=== PATIENT | male | born 1945 | race Caucasian/White ===

== ENCOUNTER 2017-04-08 13:24 | Outpatient (CLI) | payer MEDICARE, BC ==
[2017-04-08] MEDS ORDERED: Gadobenate Dimeglumine 529 MG/1 ML (20ML VIAL) ONE (13:30)
== END 2017-04-08 13:25 | disposition home or self-care (01) ==
LOC: BICMRI 13:24
PROVIDERS: ATTEND Nurse Practitioner Family
DX: M96.1 Postlaminectomy syndrome, not elsewhere classified (principal); M47.896 Other spondylosis, lumbar region; Z98.890 Other specified postprocedural states
CPT/HCPCS: 72158; A9579

== ENCOUNTER 2017-04-08 15:16 | Outpatient (CLI) | payer MEDICARE, BC | END 2017-04-08 15:17 | disposition home or self-care (01) | LOC: BICRAD 15:16 | PROVIDERS: ATTEND Nurse Practitioner Family | DX: M96.1 Postlaminectomy syndrome, not elsewhere classified (principal); M46.94 Unspecified inflammatory spondylopathy, thoracic region; M46.96 Unspecified inflammatory spondylopathy, lumbar region; Z98.890 Other specified postprocedural states | CPT/HCPCS: 72070; 72100; 72158; A9579 ==

== ENCOUNTER 2017-05-22 10:56 | Outpatient (CLI) | payer MEDICARE, BC ==
--- NOTE | 2017-05-22 13:44 | CT ---
CT LUMBAR SPINE WITHOUT CONTRAST: 05/22/2017 HISTORY: Lumbar radiculopathy. Back pain. Pain radiating into bilateral hips. COMPARISON: 01/02/2016 TECHNIQUE: Serial axial CT imaging at 3 mm intervals, from the lower thoracic spine through the lower sacrum, wi thout contrast. Coronal and sagittal reformatted imaging obtained. FINDINGS: Extensive atherosclerotic calcification of the abdominal aorta and its branches noted. Bilateral pedicle screws are present at L2, L3, and L4, with vertically oriented interlocking rods. There is minimal retrolisthesis at L1-L2 and at L2-L3, stable. T12-L1: There is disk space narrowing, mild disk bulge, and vacuum disk formation. There is mild bi lateral facet hypertrophy. There is probable mild central canal stenosis. No osseous cause of signi ficant neural foraminal stenosis. L1-L2: There is disk space narrowing, vacuum disk formation, mild disk bulge, and anterior osteophyt e formation. There is mild bilateral facet hypertrophy. There is mild bilateral neural foraminal st enosis. No osseous cause of significant central canal stenosis. L2-L3: There is disk space narrowing with vacuum disk formation and anterior osteophyte formation, a s well as mild disk bulge. There is moderate bilateral facet hypertrophy with associated moderate ne ural foraminal stenosis, left greater than right, and probable mil central canal stenosis. L3-L4: Moderate bilateral facet hypertrophy. Mild bilateral neural foraminal stenosis, right greate r than left. There is disk space narrowing with no obvious central canal stenosis. L4-L5: Mild bilateral facet hypertrophy with no significant central canal or neural foraminal stenos is, on the basis of an osseous abnormality. L5-S1: No osseous cause of significant central canal or neural foraminal stenosis. There is no worrisome lytic or blastic bone lesion. There is lateral osteophyte formation on the rig ht at L1-L2, L2-L3, and L3-L4 and on the left at L1-L2, L2-L3, and L3-L4. No worrisome lytic or johnna tic bone lesion. IMPRESSION: 1. Extensive multilevel postoperative and degenerative change within the lumbar spine, as detailed a paul. 2. Extensive atherosclerotic calcification of the abdominal aorta and its branches. POS: [facility]
== END 2017-05-22 10:57 | disposition home or self-care (01) ==
LOC: TBSIIMAG 10:56
PROVIDERS: ATTEND Neurological Surgery
DX: M47.26 Other spondylosis with radiculopathy, lumbar region (principal); I70.0 Atherosclerosis of aorta; Z98.890 Other specified postprocedural states
CPT/HCPCS: 72131

== ENCOUNTER 2017-06-11 07:06 | Inpatient (IN) | payer MEDICARE, BC ==
--- NOTE | 2017-06-11 02:24 | HP ---
HISTORY OF PRESENT ILLNESS: Mr. Leal is a 71-year-old man who is known to us from previous evaluatio n of several lumbar back problems as well as multiple lumbar back surgeries. Most recently, he has r eturned to us for evaluation of continued severe lower back pain by referral from Brinda Brown, with our colleagues and [facility] pain management. This is also with imaging at [facility] that reveals po ssible unstable segment at L2-L3 which is the adjacent segment cranially to his previous lumbar fusio n construct. CT scan also confirms bony stenosis at L2-L3. At this time, he has exhausted all of ga s conservative management options and would like to move forward with surgery at this time if possibl e. PAST MEDICAL HISTORY: Significant for hypertension, peripheral vascular disease, gout, sleep apnea, COPD, back problems, gastroesophageal reflux disease, hypercholesterolemia and hypertension. ALLERGIES: BIAXIN. MEDICATIONS: Lotrel, Advil, Protonix, tramadol, albuterol. ASSESSMENT: Lumbar back pain and radiculopathy. PLAN: Dr. Trivedi met with the patient, reviewed extensively his imaging results and options and ultim ately advocated for extension and reoperation of his fusion to include the L2 segment. He explained to the patient the risks, benefits, and alternatives to the procedure. The patient expressed underst anding and would like to move forward with surgery as discussed. I do believe the patient is mentall y competent and capable of making medical decisions for himself and for surgery as planned.
[2017-06-11 08:20] LABS: #Eosinphils 0.1 thou/uL (0.0-0.7); #Lymphocytes 1.8 thou/uL (1.20-3.40); #Monocytes 0.6 thou/uL (0.11-0.59); #Neutrophils 3.8 thou/uL (1.40-6.50); %Basophils 0.1 % (0.0-1.0); %Eosinophils 1.2 % (0.0-10.0); %Lymphocytes 28.5 % (21.0-51.0); %Monocytes 9.8 % (0.0-10.0); %Neutrophils 60.4 % (42.0-75.0); Hemoglobin 13.5 g/dL (14.0-18.0); Mean Corpuscular Hemoglobin 31.8 pg (27.0-31.0); Mean Corpuscular Volume 96.4 fl (80.0-94.0); Mean Platelet Volume 6.8 fL (7.4-10.4); Platelet Count 201 thou/uL (130-400); RBC Distribution Width 12.7 % (11.5-14.5); Red Blood Cell (RBC) Count 4.24 mill/uL (4.70-6.10); White Blood Cell (WBC) Count 6.3 thou/uL (4.8-10.8)
[2017-06-11] MEDS ORDERED: Bupivacaine HCl 0.5%/Epinephrine 1:200,000/PF 30 ml Vial ONE (08:20)
[2017-06-11] MEDS ORDERED: Fentanyl 250 MCG/5 ML VIAL ONE (08:25)
[2017-06-11] MEDS ORDERED: Midazolam HCl 2 mg/2 ml Vial ONE (08:25)
[2017-06-11 08:36] LABS: Anion Gap 10 mmol/L (10-20); BUN (Urea Nitrogen) 32 mg/dL (8.4-25.7); Calc. Creatinine Clearance 66 mL/min (70-130); Calcium 9.2 mg/dL (7.8-10.44); Carbon Dioxide 24 mmol/L (23-31); Chloride 109 mmol/L (98-107); Estimated GFR-MDRD 60; Glucose 108 mg/dL (83-110); Potassium 4.6 mmol/L (3.5-5.1); Sodium 138 mmol/L (136-145)
[2017-06-11] MEDS ORDERED: Fentanyl 100 MCG/2 ML VIAL ONE ×4 (08:37→11:17)
[2017-06-11] MEDS ORDERED: Ondansetron HCl/PF 4 MG/2 ML Vial ONE ×2 (08:43→11:10)
[2017-06-11] MEDS ORDERED: CEFAZOLIN/Water 2 GM/20 ML SYRINGE ONE ×2 (08:49→12:53)
[2017-06-11] MEDS ORDERED: Morphine Sulfate 2 MG/ML SYRINGE SLOW IVP PRN (09:52)
[2017-06-11] MEDS ORDERED: HYDROmorphone 2 MG/ML VIAL SLOW IVP PRN (09:52)
[2017-06-11] MEDS ORDERED: Tamsulosin HCl 0.4 MG CAP ONE (11:02)
[2017-06-11] MEDS ORDERED: PROPOFOL 200 MG/20 ML VIAL ONE (11:10)
[2017-06-11] MEDS ORDERED: Glycopyrrolate 0.2 MG/ML 5 ML SYRINGE ONE (11:10)
[2017-06-11] MEDS ORDERED: Dexamethasone 20 MG/5 ML VIAL ONE (11:10)
[2017-06-11] MEDS ORDERED: ePHEDrine/0.9% NaCl/PF SYRINGE 50 mg/10 ml ONE (11:10)
[2017-06-11] MEDS ORDERED: Lidocaine 1% PF 5 ML VIAL ONE (11:10)
[2017-06-11] MEDS ORDERED: HYDROmorphone 0.5 MG/0.5 ML SYRINGE ONE ×2 (11:30→11:54)
[2017-06-11] MEDS ORDERED: HYDROcodone/Acetaminophen 7.5/325 mg Tablet ONE (12:44)
--- NOTE | 2017-06-12 15:10 | OP ---
DATE OF OPERATION: 06/11/2017 SURGEON: Abel Trivedi M.D. SUPERVISOR EDGING: Haim Vee PA-C. INDICATION: Pain. DIAGNOSIS: Low back pain. PROCEDURE: Exploration of fusion, decompression, and onlay fusion with placement of allograft and au tograft. ANESTHESIA: General. TECHNIQUE: The patient was brought into the operating room and placed under general anesthesia. He was flipped from a supine or prone position on the operating room table. A linear incision was plann ed spanning location of his old surgical site. This area was prepped and draped. After an appropria te operative pause, the incision was created. Soft tissues were swept away from midline. Self-retai andre retractors were placed in the wound for optimal exposure. After identifying location, the patie nt's prior fusion, as well as instrumentation construct, bone was carefully removed around the screw sites. The segment of L2-3 was decompressed to further decompress the recess at L2-3. The bone was decorticated along the lateral confines of L2-3 where allograft and autograft were placed extending i nferiorly into L3. The wound was irrigated. Hemostasis was maintained throughout. The wound was th en closed in anatomic layers and a pressure dressing was applied. There were no known procedural com plications.
--- NOTE | 2017-06-15 08:46 | EKG ---
Test Reason : PROEP Blood Pressure : / mmHG Vent. Rate : 059 BPM Atrial Rate : 059 BPM P-R Int : 158 ms QRS Dur : 088 ms QT Int : 434 ms P-R-T Axes : 064 011 -03 degrees QTc Int : 429 ms Sinus bradycardia Inferior infarct (cited on or before 28-NOV-2014) Abnormal ECG When compared with ECG of 02-DEC-2014 14:39, No significant change was found Confirmed by KACI PICKENS MD ([id number]) on 06/15/2017 8:45:45 AM Referred By: DIEGO Confirmed By:KACI PICKENS MD
== END 2017-06-11 13:20 | disposition home or self-care (01) | DRG 460 ==
LOC: SURG A 07:06
PROVIDERS: ADMIT Neurological Surgery; ATTEND Neurological Surgery
PROC: 0SG0071 Fusion of Lumbar Vertebral Joint with Autologous Tissue Substitute, Posterior Approach, Posterior Column, Open Approach (ICD-10-PCS; principal; 2017-06-11)
DX: M51.36 Other intervertebral disc degeneration, lumbar region (principal); J44.9 Chronic obstructive pulmonary disease, unspecified; M47.896 Other spondylosis, lumbar region; I10 Essential (primary) hypertension; Q76.2 Congenital spondylolisthesis; I73.9 Peripheral vascular disease, unspecified; M10.9 Gout, unspecified; G47.30 Sleep apnea, unspecified; K21.9 Gastro-esophageal reflux disease without esophagitis; E78.5 Hyperlipidemia, unspecified
CPT/HCPCS: 36415; 76001; 80048; 85025; 93005; 93010; 96374; C1768; J0670; J1100; J1170; J2001; J2250; J2405; J2704; J3010

== ENCOUNTER 2017-07-31 13:01 | Outpatient (CLI) | payer MEDICARE, BC ==
--- NOTE | 2017-07-31 13:25 | RAD ---
LUMBAR SPINE 2 VIEWS: HISTORY: Low back pain. Surgery. COMPARISON: 06/28/16. FINDINGS: Bilateral pedicle screws and vertical rods are in place at the L2-3-4 levels. Lucency surrounding th e L3 pedicle screws on the lateral view is up to 0.2 cm. Rightward convex curvature is again demonst rated. Other pedicles are intact. Vertebral body heights are maintained. Disk space narrowing and minimal degenerative retrolisthesis at the L3-4 and L4-5 levels is stable. There is prominent calcif ication throughout the arterial structures. IMPRESSION: 1. Subtle lucency developing around the L3 pedicle screws. Clinical correlation regarding other sig ns and symptoms of hardware loosening is required. 2. Lumbar spondylosis. 3. Atherosclerosis. POS: [facility]
== END 2017-07-31 13:02 | disposition home or self-care (01) ==
LOC: TBSIIMAG 13:01
PROVIDERS: ATTEND Neurological Surgery
DX: M47.26 Other spondylosis with radiculopathy, lumbar region (principal); I70.8 Atherosclerosis of other arteries
CPT/HCPCS: 72100

== ENCOUNTER 2018-04-15 06:37 | Day surgery (SDC) | payer MEDICARE, BC ==
[2018-04-14 12:01] VITALS: BMI 23.7
[2018-04-15] MEDS ORDERED: Lorazepam 1 MG TAB ONE (07:30)
[2018-04-15 08:42] VITALS: BP 159/92; TEMP 98.6
[2018-04-15] MEDS ORDERED: Iopamidol-M 300 61% 15 ML VIAL ONE (10:19)
--- NOTE | 2018-04-15 10:54 | CT ---
CT MYELOGRAM OF THE LUMBAR SPINE: Date: 04-15-18 Comparison: 08-15-16 History: Pain, lumbar radiculopathy. Technique: Axial CT imaging at 2.5 mm intervals obtained through the lumbar spine following the intra thecal administration of iodinated contrast media. Coronal and sagittal reformatted imaging obtained. FINDINGS: There is extensive atherosclerotic calcification of the abdominal aorta and its branches, incompletel y assessed on this examination. There is a questionable transitional vertebral body at the lumbosacral junction. For the purposes of this examination the numbering of the vertebral bodies will be the same as used for the 08-15-16 dicta tion. Thus, there is posterior fusion hardware present at L3, L4, and L5 with bilateral pedicle screw s and vertically oriented interlocking rods. T12-L1: Mild bilateral facet hypertrophy with no significant central canal or neural foraminal stenos is. L1-2: Mild bilateral facet hypertrophy and hypertrophy of the ligamentum flavum. There is disc space narrowing with mild disc bulge partially effacing the ventral thecal sac and leading to a mild degree of central canal stenosis and mild bilateral neural foraminal stenosis. Vacuum disc formation noted. L2-3: Mild bilateral facet hypertrophy. Prominent anterior osteophyte formation on the left. There is disc space narrowing and mild disc bulge with a vacuum disc present. No significant central canal st enosis. Mild bilateral facet hypertrophy. L3-4: There is disc space narrowing and vacuum disc formation. There is prominent anterior osteophyte formation. There is a prominent bilateral facet hypertrophy. There is moderate bilateral neural fora brendon stenosis, right greater than left. No significant central canal stenosis. Bilateral laminectomy changes are present. L4-5: Prominent bilateral facet hypertrophy. Disc space narrowing with mild disc bulge causes no cent ral canal stenosis. Bilateral laminectomy changes are present. There is mild/moderate bilateral neura l foraminal stenosis, right greater than left. L5-S1: Bilateral laminectomy changes. Mild bilateral facet hypertrophy with no significant central ca nal or neural foraminal stenosis. No worrisome lytic or blastic bone lesions. When compared to the prior examination there has been no significant interval change. IMPRESSION: 1. Post-operative and degenerative changes noted within the lumbar spine as detailed above. POS: [facility]
--- NOTE | 2018-04-15 11:05 | RAD ---
THORACIC SPINE MYELOGRAM LUMBAR SPINE MYELOGRAM: Date: 04-15-18 Comparison: None. History: Lumbar stenosis, lumbar and thoracic radiculopathy, thoracic and lumbar pain. FINDINGS: Informed consent obtained prior to the procedure. Sc[employer]er imaging demonstrates midline sternotomy wires and mediastinal clips. On cooling tower operator imaging there is multilevel mild mid and lower thoracic spine disc space narrowing with anterior osteophyte formation. In addition, there is posterior fusion hardware consisting of bilateral pedicle screws and verticall y oriented interlocking rods at L3, L4, and L5. There is disc space narrowing with right and left lat eral osteophyte formation at L2-3 and to a lesser degree, L1-2. There is extensive atherosclerotic calcification of the thoracic aorta and pelvic arterial structures . Patient was placed in the prone position on the fluoroscopic table and skin overlying the lower lumba r spine was prepped and draped in normal sterile fashion. Skin was anesthetized with 1% buffered Lido devyn. Using intermittent fluoroscopic guidance, a 22 gauge spinal needle was advanced into the thecal sac a t the L4-5 level and removal of the stylet yields clear cerebrospinal fluid. Approximately 12 cc of I sovue 300 was injected outline nerve roots of the cauda equina and opacifying the thecal sac. The nee dle was removed. The patient's head was tilted down to extend contrast media throughout the thoracic and lumbar spine. The patient tolerated the procedure well. Partially imaged cervical spine on cooling tower operator imaging demonstrates C5-6 and C6-7 disc space narrowing with anterior and posterior osteophyte formation. Exposure data: 1.3 minutes fluoroscopic time 524.5 mGy*cm^2 IMPRESSION: 1. Post-operative and degenerative changes of the imaged spine as detailed above. Successful thoracic and lumbar spine myelogram. POS: [facility]
--- NOTE | 2018-04-15 11:16 | CT ---
CT MYELOGRAM THORACIC SPINE: 04/15/2018 HISTORY: Radiculopathy. COMPARISON: None. TECHNIQUE: Axial CT imaging is obtained at 3.75 mm intervals, from the cervicothoracic junction through the thor acolumbar junction, following the intrathecal administration of iodinated contrast media. Coronal an d sagittal reformatted imaging obtained. FINDINGS: No significant anterolisthesis or retrolisthesis is noted within the thoracic spine. The imaged lung parenchyma demonstrates subpleural cystic change within the bilateral lung apices. There is a nonspecific subpleural nodule on the right, measuring 9 mm, within the posterior right upp er lobe on axial image 32. Small subpleural nodule noted in the superior segment, right lower lobe, on image 46, measuring 5 mm. There is scattered atherosclerotic calcification of the imaged thoracic aorta, and there is extensive coronary arterial calcification. The patient is status post midline sternotomy. C7-T1: No significant central canal or neural foraminal stenosis. T1-T2: No significant central canal or neural foraminal stenosis. T2-T3: No significant central canal or neural foraminal stenosis. T3-T4: No significant central canal or neural foraminal stenosis. T4-T5: No significant central canal or neural foraminal stenosis. T5-T6: No significant central canal or neural foraminal stenosis. T6-T7: No significant central canal or neural foraminal stenosis. T7-T8: No significant central canal or neural foraminal stenosis. T8-T9: No significant central canal or neural foraminal stenosis. T9-T10: Mild bilateral facet hypertrophy with no significant central canal or neural foraminal steno sis. T10-T11: Facet hypertrophy noted on the left. No significant central canal or neural foraminal sten osis. T11-T12: No significant central canal or neural foraminal stenosis. T12-L1: Mild bilateral facet hypertrophy with no significant central canal or neural foraminal steno sis. There is no worrisome lytic or blastic bone lesion. No acute fracture or evidence of dislocation is seen. IMPRESSION: 1. Atherosclerotic disease, including coronary arterial calcification. 2. No significant central canal or neural foraminal stenosis within the thoracic spine. 3. Incompletely assessed pulmonary nodules. Recommend dedicated CT examination of the chest for ful l assessment. CODE T POS: [facility]
== END 2018-04-15 10:00 | disposition home or self-care (01) ==
LOC: RAD 06:37
PROVIDERS: ATTEND Neurological Surgery
PROC: B01B1ZZ Fluoroscopy of Spinal Cord using Low Osmolar Contrast (ICD-10-PCS; principal; 2018-04-15)
DX: M48.062 Spinal stenosis, lumbar region with neurogenic claudication (principal); M51.16 Intervertebral disc disorders with radiculopathy, lumbar region; I70.0 Atherosclerosis of aorta; I25.10 Atherosclerotic heart disease of native coronary artery without angina pectoris; Z79.02 Long term (current) use of antithrombotics/antiplatelets; Z79.899 Other long term (current) drug therapy; Z88.1 Allergy status to other antibiotic agents; Z88.8 Allergy status to other drugs, medicaments and biological substances; Z98.1 Arthrodesis status
CPT/HCPCS: 62305; 72129; 72132; Q9967

== ENCOUNTER 2018-12-22 11:29 | Day surgery (SDC) | payer MEDICARE, BC ==
[2018-12-21 13:51] VITALS: BMI 20.9
[2018-12-22 12:45] LABS: #Basophils 0.1 thou/uL (0.0-0.2); #Eosinphils 0.1 thou/uL (0.0-0.7); #Lymphocytes 2.3 thou/uL (1.20-3.40); #Neutrophils 5.7 thou/uL (1.40-6.50); %Basophils 0.8 % (0.0-1.0); %Eosinophils 1.2 % (0.0-10.0); %Lymphocytes 24.9 % (21.0-51.0); %Monocytes 10.8 % (0.0-10.0); %Neutrophils 62.3 % (42.0-75.0); Hemoglobin 10.5 g/dL (14.0-18.0); Mean Corpuscular HGB CONC 32.5 g/dL (32.0-36.0); Mean Corpuscular Hemoglobin 27.9 pg (27.0-31.0); Mean Corpuscular Volume 85.9 fL (78.0-98.0); Platelet Count 235 thou/uL (130-400); RBC Distribution Width 14.9 % (11.5-14.5); Red Blood Cell (RBC) Count 3.75 mill/uL (4.70-6.10); White Blood Cell (WBC) Count 9.2 thou/uL (4.8-10.8)
[2018-12-22] MEDS ORDERED: Fentanyl 100 MCG/2 ML VIAL ONE ×2 (12:55→13:43)
[2018-12-22] MEDS ORDERED: CEFAZOLIN 1 GM VIAL ONE (13:07)
[2018-12-22] MEDS ORDERED: Sodium Chloride 0.9% 100 ML ONE (13:07)
[2018-12-22 13:14] LABS: Anion Gap 9 mmol/L (10-20); BUN (Urea Nitrogen) 21 mg/dL (8.4-25.7); Calc. Creatinine Clearance 76 mL/min (70-130); Calcium 8.9 mg/dL (7.8-10.44); Carbon Dioxide 27 mmol/L (23-31); Chloride 100 mmol/L (98-107); Estimated GFR-MDRD 87; Glucose 95 mg/dL (83-110); Potassium 4.3 mmol/L (3.5-5.1); Sodium 132 mmol/L (136-145)
[2018-12-22] MEDS ORDERED: ADMIXTURE FEE I-THECAL SCH (13:45)
[2018-12-22] MEDS ORDERED: MORPHINE I-THECAL SCH (13:45)
[2018-12-22] MEDS ORDERED: Bupivacaine HCl 0.5%/Epinephrine 1:200,000/PF 30 ml Vial ONE (13:53)
[2018-12-22] MEDS ORDERED: Sodium Chloride 0.9% 10 ML ONE (13:53)
[2018-12-22] MEDS ORDERED: Lidocaine 1% (PF) 30 ML VIAL ONE (13:53)
--- NOTE | 2018-12-22 16:40 | EKG ---
Test Reason : PREOP Blood Pressure : / mmHG Vent. Rate : 065 BPM Atrial Rate : 065 BPM P-R Int : 172 ms QRS Dur : 074 ms QT Int : 412 ms P-R-T Axes : 080 022 041 degrees QTc Int : 428 ms Normal sinus rhythm Inferior infarct , age undetermined cannot be excluded Abnormal ECG Confirmed by ANETA PALMER ([id number]) on 12/22/2018 4:39:38 PM Referred By: ISAURO Confirmed By:ANETA PALMER
--- NOTE | 2018-12-22 21:27 | OP ---
DATE OF PROCEDURE: 12/22/2018 CO-SURGEON: Dr. Park. PREOPERATIVE DIAGNOSES: 1. Chronic pain syndrome. 2. Post-laminectomy syndrome. 3. Lumbar radiculopathy. POSTOPERATIVE DIAGNOSES: 1. Chronic pain syndrome. 2. Post-laminectomy syndrome. 3. Lumbar radiculopathy. PROCEDURES PERFORMED: 1. Intrathecal pump catheter placement. 2. Intrathecal pump implantation. 3. Programming. ESTIMATED BLOOD LOSS: 5 mL. DESCRIPTION OF PROCEDURE: The patient was taken to the procedure room and a time-out was performed. He was placed under general anesthesia and placed in the left lateral decubitus position. All pressure points were checked. The back and stomach were prepped with ChloraPrep and sterile drapes were applied. Using fluoroscopy, we located the interspace of L2-L3. I inserted the supplied 14-gauge spinal needle through the anesthetized skin and advanced it into the interspinous ligament. I then under constant aspiration slowly approached the intrathecal space until CSF was aspirated. This was confirmed on lateral and AP views. I then inserted the catheter through the needle up to the level of T8. The needle was removed taking care to leave the catheter in place. An anchor was placed over the catheter and this was sutured down with 2-0 silk sutures x2. This was after an incision was made and blunt dissected down to fascia. A tunneling device was then placed in the subcutaneous lower layer and threaded to the pocket where Dr. Park was building a pocket for the pump site. For this part of the procedure, please refer to Dr. Park's note. We then approximated the fascial layer with 2-0 Vicryl suture in a simple interrupted fashion. [place] were then placed to approximate the skin layer. Telfa and sterile 4x4s were placed. The patient was taken to the PACU under stable condition. Job ID: [id number]
--- NOTE | 2018-12-22 21:33 | OP ---
DATE OF PROCEDURE: 12/22/2018 PREOPERATIVE DIAGNOSIS: Post-laminectomy syndrome, chronic pain. CO-SURGEON: Dr. Darling. PROCEDURE PERFORMED: Implantation of programmable implantable intrathecal pain pump. INDICATIONS: The patient is 73-year-old male, who has had multiple back surgeries, had post-laminectomy pain. He underwent trial, showed good results with intrathecal narcotic findings. The pump was placed in the right lower quadrant of the abdomen. DESCRIPTION OF PROCEDURE: After informed consent was obtained, patient was taken to the operating room and given general endotracheal anesthesia, placed in the left lateral decubitus position. His abdomen, flank, and back were prepped and draped in usual fashion. Dr. Darling performed the placement of the catheter in the intrathecal space. I performed an incision in the right lower quadrant and a suprafascial plane was developed using blunt and sharp dissection. Four 2-0 Prolene were placed in 4 quadrants. The tunneling device was used to connect the back incision to the front incision. The catheter was threaded through the tunneler. Then, the tunnel was connected to the connector and then the connector attached to the pump. The pump had been filled in the back table. The redundant catheter was placed posteriorly and the catheter was tied down to the abdominal wall with these 2-0 Prolene sutures with the catheter posterior. Hemostasis was assured and the subcu reapproximated with interrupted 2-0 Vicryl and the skin closed with a running subcuticular 4-0 Rapide. Steri-Strips applied. Sterile bandage applied. The patient tolerated the procedure well, transferred to Recovery in good condition. Sponge and needle count verified and correct x2. Job ID: [id number]
== END 2018-12-22 16:55 | disposition home or self-care (01) ==
LOC: SDC 11:29
PROVIDERS: ATTEND Surgery
PROC: 0JH83VZ Insertion of Infusion Pump into Abdomen Subcutaneous Tissue and Fascia, Percutaneous Approach (ICD-10-PCS; principal; 2018-12-22)
DX: G89.4 Chronic pain syndrome (principal); M96.1 Postlaminectomy syndrome, not elsewhere classified; M47.26 Other spondylosis with radiculopathy, lumbar region; M47.817 Spondylosis without myelopathy or radiculopathy, lumbosacral region; M46.1 Sacroiliitis, not elsewhere classified; I10 Essential (primary) hypertension; M10.9 Gout, unspecified; G47.30 Sleep apnea, unspecified; J44.9 Chronic obstructive pulmonary disease, unspecified; E78.00 Pure hypercholesterolemia, unspecified; F17.210 Nicotine dependence, cigarettes, uncomplicated; I25.10 Atherosclerotic heart disease of native coronary artery without angina pectoris; E78.5 Hyperlipidemia, unspecified; M19.90 Unspecified osteoarthritis, unspecified site; K21.9 Gastro-esophageal reflux disease without esophagitis; Z79.02 Long term (current) use of antithrombotics/antiplatelets; Z79.899 Other long term (current) drug therapy; Z88.1 Allergy status to other antibiotic agents; Z88.8 Allergy status to other drugs, medicaments and biological substances; Z98.1 Arthrodesis status; Z95.1 Presence of aortocoronary bypass graft; Z95.5 Presence of coronary angioplasty implant and graft; Z98.890 Other specified postprocedural states
CPT/HCPCS: 36415; 72070; 76000; 80048; 85025; 93005; 93010; C1772; J0670; J0690; J2001; J2274; J3010; J3490

== ENCOUNTER 2019-03-31 13:22 | Outpatient (CLI) | payer MEDICARE, BC ==
--- NOTE | 2019-03-31 14:35 | CT ---
CT lumbar spine noncontrast HISTORY: Low back pain. Multiple previous surgeries. COMPARISON: 04/15/2018. FINDINGS: Images including the retroperitoneum show prominent calcification throughout the arterial s tructures with fusiform ectasia of the lower abdominal aorta and iliac artery similar in appearance to the previous exam. Left renal cyst is partially visualized. Numbering will be kept consistent with previous exams, with the transitional vertebra at the first sa cral level. T12-L1: Mild disc space narrowing. Osteophytosis. Central canal and neural foramina are patent. L1-2: Intrathecal catheter enters posterior at this level and ascends the central canal anteriorly an d to the right of midline. Disc space narrowing and gas disc phenomenon. Diffuse posterior disc bulge and circumferential degenerative changes. Moderate stenosis of the central canal. Moderate righ t and mild left foraminal stenoses. L2-3: Disc space narrowing. Minimal degenerative retrolisthesis. Diffuse posterior disc bulge and cir cumferential degenerative changes. Moderate stenosis of the central canal and each neural foramen. L3-4: Posterior operative fixation and laminectomy. Central canal is patent. Osteophytosis of the fac ets. No perihardware lucency. Severe right and moderate left foraminal stenoses. L4-5: Posterior operative fixation without perihardware lucency. Posterior disc bulge. Thecal sac is patent. Moderate stenosis of the right neural foramen. Left neural foramen remains patent. L5-S1: Osteophytosis of the facets. Thecal sac and neural foramina remain patent. IMPRESSION: Postoperative and prominent multilevel degenerative changes throughout the lumbar spine a s detailed above. Stenosis most severe at the right L3-4 neural foramen. Clinical correlation regarding the right L3 dermatome is required. Intrathecal catheter now in place. Atherosclerosis.
== END 2019-03-31 13:23 | disposition home or self-care (01) ==
LOC: TBSIIMAG 13:22
PROVIDERS: ATTEND Neurological Surgery
DX: M54.5 Low back pain (principal); M47.816 Spondylosis without myelopathy or radiculopathy, lumbar region; M48.061 Spinal stenosis, lumbar region without neurogenic claudication; I70.90 Unspecified atherosclerosis; Z98.890 Other specified postprocedural states; Z97.8 Presence of other specified devices
CPT/HCPCS: 72131

== ENCOUNTER 2019-08-04 06:21 | Outpatient (CLI) | payer MEDICARE, BC, OTHER ==
[2019-08-03 11:50] LABS: #Basophils 0.1 thou/uL (0.0-0.2); #Eosinphils 0.1 thou/uL (0.0-0.7); #Lymphocytes 2.2 thou/uL (1.20-3.40); #Monocytes 0.8 thou/uL (0.11-0.59); #Neutrophils 6.5 thou/uL (1.40-6.50); %Basophils 0.7 % (0.0-1.0); %Lymphocytes 23.1 % (21.0-51.0); %Monocytes 8.3 % (0.0-10.0); Hemoglobin 11.5 g/dL (14.0-18.0); MDiff Complete? YES; Mean Corpuscular HGB CONC 30.9 g/dL (32.0-36.0); Mean Corpuscular Volume 90.7 fL (78.0-98.0); Mean Platelet Volume 7.6 fL (7.4-10.4); Platelet Count 277 thou/uL (130-400); Platelet Morphology Comment Appears Adequate; Polychromasia SLIGHT = 2-3 cells (100X) (0-2/hpf); RBC Distribution Width 19.7 % (11.5-14.5); Red Blood Cell (RBC) Count 4.11 mill/uL (4.70-6.10); White Blood Cell (WBC) Count 9.6 thou/uL (4.8-10.8)
[2019-08-03 12:34] LABS: ALT (SGPT) 9 U/L (8-55); AST (SGOT) 14 U/L (5-34); Albumin 3.7 g/dL (3.4-4.8); Alkaline Phosphatase 65 U/L (40-110); Anion Gap 15 mmol/L (10-20); BUN (Urea Nitrogen) 20 mg/dL (8.4-25.7); Bilirubin, Total 0.2 mg/dL (0.2-1.2); Calc. Creatinine Clearance 0 mL/min (70-130); Calcium 9.1 mg/dL (7.8-10.44); Carbon Dioxide 21 mmol/L (23-31); Chloride 105 mmol/L (98-107); Estimated GFR-MDRD 86; Globulin 3.3 g/dL (2.4-3.5); Glucose 86 mg/dL (83-110); Potassium 4.8 mmol/L (3.5-5.1); Sodium 136 mmol/L (136-145)
[2019-08-04 18:06] LABS: SARS-CoV-2 MS2 Positive; SARS-CoV-2 N Gene Negative; SARS-CoV-2 S Gene Negative; SARS-CoV-2 orf1ab Negative
== END 2019-08-04 06:22 | disposition home or self-care (01) ==
LOC: LABBT 06:21
PROVIDERS: ATTEND Surgery
DX: Z01.818 Encounter for other preprocedural examination (principal); Z11.59 Encounter for screening for other viral diseases; K40.90 Unilateral inguinal hernia, without obstruction or gangrene, not specified as recurrent
CPT/HCPCS: 80053; 85025; 93005; U0003; 87635; 93010

== ENCOUNTER 2019-08-05 05:38 | Day surgery (SDC) | payer MEDICARE, BC ==
[2019-08-03 11:22] VITALS: BMI 20.6
[2019-08-05] MEDS ORDERED: Fentanyl 100 MCG/2 ML VIAL ONE ×2 (06:33→10:19)
[2019-08-05] MEDS ORDERED: Lidocaine 1% w/Epinephrine 1:100K 20 ML VIAL ONE ×2 (06:41→06:45)
[2019-08-05] MEDS ORDERED: Bupivacaine 0.25% HCL 30 ML VIAL ONE ×2 (06:41→06:45)
[2019-08-05] MEDS ORDERED: SUGAMMADEX SODIUM 500 MG/5 ML VIAL ONE (06:51)
[2019-08-05] MEDS ORDERED: Phenylephrine 10 MG/ML VIAL ONE (06:51)
[2019-08-05] MEDS ORDERED: HYDROmorphone 2 MG/ML VIAL ONE (08:57)
[2019-08-05] MEDS ORDERED: Albuterol Sulfate HFA (OR ONLY) ONE ×2 (08:57→10:59)
[2019-08-05] MEDS ORDERED: hydrALAZINE 20 MG/ML VIAL ONE (09:39)
[2019-08-05] MEDS ORDERED: Glycopyrrolate 0.2 MG/ML 5 ML SYRINGE ONE (10:59)
[2019-08-05] MEDS ORDERED: Dexamethasone 20 MG/5 ML VIAL ONE (10:59)
[2019-08-05] MEDS ORDERED: Metoprolol Tartrate 5 MG/5 ML VIAL ONE (10:59)
[2019-08-05] MEDS ORDERED: Ketorolac Tromethamine 30 MG/ML VIAL ONE (10:59)
[2019-08-05] MEDS ORDERED: PHENYLEPHRINE-NS 100 MCG/ML 10 ML SYRINGE ONE (10:59)
[2019-08-05] MEDS ORDERED: Ondansetron PF 4 MG/2 ML Vial ONE (10:59)
[2019-08-05] MEDS ORDERED: Rocuronium Bromide 10 MG/ML (10ML VIAL) ONE (10:59)
[2019-08-05] MEDS ORDERED: PROPOFOL 200 MG/20 ML VIAL ONE (10:59)
[2019-08-05] MEDS ORDERED: EPHEDRINE 25 MG/5 ML SYRINGE ONE (10:59)
[2019-08-05] MEDS ORDERED: Metoclopramide HCl 10 MG/2 ML VIAL ONE (10:59)
--- NOTE | 2019-08-06 07:25 | OP ---
DATE OF PROCEDURE: 08/05/2019 PREOPERATIVE DIAGNOSES: Dysfunctional pain pump and right inguinal hernia. PROCEDURE PERFORMED: Removal of intrathecal catheter and pain pump, right inguinal hernia repair with mesh. INDICATIONS: This is a 73-year-old male, who has post-laminectomy pain, had an intrathecal pain pump placed that was not working for him. He desired removal. Also had a painful right inguinal hernia. FINDINGS: Catheter and system removed intact. There was 20 mL of Duramorph in the system that was wasted separately. He had a direct inguinal hernia. DESCRIPTION OF PROCEDURE: After informed consent was obtained, the patient was taken to the operating room. He was given general endotracheal anesthesia. He was placed in the left lateral decubitus position. His back was prepped and draped in usual fashion. The anchor was palpable just to the right of the spine. Local anesthesia was infiltrated subcutaneously and deep. A longitudinal incision was performed over the palpable anchor through old incision. Subcu divided sharply. The hardware was visualized. The sutures were removed. The catheter was able to be removed very quickly from the intrathecal space; however, once it was removed, there was brisk flow of CSF fluid. This was controlled with a [id number] of 2-0 Prolene suture. The redundant catheter was then removed as far as I could get it out from the back incision. The subcu was reapproximated with interrupted 3-0 Vicryl. The skin closed with a running subcuticular 4-0 Rapide. Dermabond was applied and a sterile bandage was applied. The patient was then placed in the supine position. Originally, I thought I would be able to repair the hernia and remove the pump through the same incision, but unfortunately there was too much distance to do that, so I did the right inguinal hernia repair first. A transverse inguinal incision was performed after local anesthesia infiltrated subcutaneously and deep, subcutaneous tissue divided with electrocautery. The fascia of external oblique was incised in direction of its fibers through the external ring. Spermatic cord was isolated with a Sheri drain. Cremasteric fibers . There was a small cord lipoma. No evidence of indirect hernia. He had a large direct inguinal hernia. This was circumscribed and reduced. Reduction was maintained with a PHS hernia system placed in the preperitoneal space. The anterior was laid out, sutured to the pubic tubercle medially, tucked under the external oblique fascia laterally. Hemostasis was assured. The external oblique fascia closed over the cord with a running 3-0 Vicryl. Jeff was closed with interrupted 3-0 Vicryl and the skin closed with a running subcuticular 4-0 Rapide. Steri-Strips applied. Then, local anesthesia was infiltrated subcutaneously and deep and another transverse incision was performed through the old scar to access the pain pump cavity. The pain pump cavity was found and the pain pump was able to be extruded. The catheter was fully removed from his body. The system was placed on the back table. Hemostasis was assured. Subcu reapproximated with interrupted 3-0 Vicryl. Skin closed with a running subcuticular 4-0 Rapide. Steri-Strips applied. Sterile bandage applied. On the back table, 20 mL of Duramorph removed from the system. This was wasted with 3 witnesses. The pump was then discarded per protocol. The patient tolerated the procedure well, transferred to Recovery in good condition. Sponge and needle count verified correct x2. Job ID: [id number]
== END 2019-08-05 11:45 | disposition home or self-care (01) ==
LOC: SDC 05:38 → EEVIPCON 05:38 → SDC 11:45
PROVIDERS: ATTEND Surgery
PROC: 0YU50JZ Supplement Right Inguinal Region with Synthetic Substitute, Open Approach (ICD-10-PCS; principal; 2019-08-05)
PROC: 0JPT0VZ Removal of Infusion Pump from Trunk Subcutaneous Tissue and Fascia, Open Approach (ICD-10-PCS; 2019-08-05)
DX: K40.90 Unilateral inguinal hernia, without obstruction or gangrene, not specified as recurrent (principal); T85.615A Breakdown (mechanical) of other nervous system device, implant or graft, initial encounter; D17.6 Benign lipomatous neoplasm of spermatic cord; I25.10 Atherosclerotic heart disease of native coronary artery without angina pectoris; E78.5 Hyperlipidemia, unspecified; I10 Essential (primary) hypertension; K21.9 Gastro-esophageal reflux disease without esophagitis; M19.90 Unspecified osteoarthritis, unspecified site; M10.9 Gout, unspecified; F17.210 Nicotine dependence, cigarettes, uncomplicated; G47.30 Sleep apnea, unspecified; J44.9 Chronic obstructive pulmonary disease, unspecified; M54.16 Radiculopathy, lumbar region; E78.00 Pure hypercholesterolemia, unspecified; Z79.02 Long term (current) use of antithrombotics/antiplatelets; Z79.899 Other long term (current) drug therapy; Z88.1 Allergy status to other antibiotic agents; Z88.2 Allergy status to sulfonamides; Z88.8 Allergy status to other drugs, medicaments and biological substances; Z95.1 Presence of aortocoronary bypass graft; Z98.1 Arthrodesis status
CPT/HCPCS: J0360; J0690; J1170; J2370; J3010; S0020

== ENCOUNTER 2019-08-09 02:22 | Emergency (ER) | payer MEDICARE, BC ==
[2019-08-09] MEDS ORDERED: Morphine 4 MG/ML VIAL ONE (02:46)
[2019-08-09] MEDS ORDERED: Ondansetron PF 4 MG/2 ML Vial ONE (02:46)
[2019-08-09] MEDS ORDERED: HYDROcodone/Acetaminophen 5/325 mg Tablet ONE (02:46)
== END 2019-08-09 03:40 | disposition home or self-care (01) ==
LOC: ERS 02:22
DX: M54.5 Low back pain (principal); G89.29 Other chronic pain; J44.9 Chronic obstructive pulmonary disease, unspecified; I25.2 Old myocardial infarction; I10 Essential (primary) hypertension; I25.10 Atherosclerotic heart disease of native coronary artery without angina pectoris; F32.9 Major depressive disorder, single episode, unspecified; F17.210 Nicotine dependence, cigarettes, uncomplicated; Z79.899 Other long term (current) drug therapy
CPT/HCPCS: J2270; J2405

== ENCOUNTER 2019-08-09 13:06 | Inpatient (IN) | payer MEDICARE, BC ==
[2019-08-09 13:50] LABS: #Basophils 0.1 thou/uL (0.0-0.2); #Lymphocytes 1.3 thou/uL (1.20-3.40); #Neutrophils 17.2 thou/uL (1.40-6.50); %Basophils 0.3 % (0.0-1.0); %Lymphocytes 6.8 % (21.0-51.0); %Monocytes 4.9 % (0.0-10.0); %Neutrophils 87.9 % (42.0-75.0); Hemoglobin 13.6 g/dL (14.0-18.0); Mean Corpuscular HGB CONC 30.8 g/dL (32.0-36.0); Mean Corpuscular Hemoglobin 28.4 pg (27.0-31.0); Mean Corpuscular Volume 92.2 fL (78.0-98.0); Mean Platelet Volume 7.4 fL (7.4-10.4); Platelet Count 300 thou/uL (130-400); RBC Distribution Width 19.6 % (11.5-14.5); Red Blood Cell (RBC) Count 4.78 mill/uL (4.70-6.10); White Blood Cell (WBC) Count 19.6 thou/uL (4.8-10.8)
[2019-08-09] MEDS ORDERED: cefTRIAXone\\ROCEPHIN 2 GM VIAL ONE (13:56)
[2019-08-09] MEDS ORDERED: Vancomycin 1.5 GRAM/300 ML BAG 1.5 GM in Premix Bag 1 BAG IVPB SCH (14:00)
[2019-08-09 14:08] LABS: ALT (SGPT) 12 U/L (8-55); AST (SGOT) 16 U/L (5-34); Albumin 4.3 g/dL (3.4-4.8); Alkaline Phosphatase 87 U/L (40-110); Anion Gap 15 mmol/L (10-20); BUN (Urea Nitrogen) 11 mg/dL (8.4-25.7); Bilirubin, Total 0.5 mg/dL (0.2-1.2); Calc. Creatinine Clearance 0 mL/min (70-130); Carbon Dioxide 22 mmol/L (23-31); Chloride 102 mmol/L (98-107); Estimated GFR-MDRD Greater than 90; Globulin 4.6 g/dL (2.4-3.5); Glucose 153 mg/dL (83-110); Potassium 4.4 mmol/L (3.5-5.1); Protein, Total 8.9 g/dL (5.8-8.1); Sodium 135 mmol/L (136-145)
[2019-08-09 14:41] LABS: Bilirubin Negative (Negative); Blood, Urine Negative (Negative); Clarity Clear (Clear); Glucose, Urine (Dipstick) 50 mg/dL (Negative); Leukocyte Negative Leu/uL (Negative); Nitrite Negative (Negative); Protein, Urine (Dipstick) Negative (Neg-Trace); Urobilinogen Normal mg/dL (Less than 2)
--- NOTE | 2019-08-09 14:44 | RAD ---
PORTABLE CHEST 1 VIEW: Date: 08/09/2019 Time: 1329 hours HISTORY: Sepsis. FINDINGS: Comparison made with exam of 12/02/2014. There are changes of median sternotomy. The heart size is normal. The lungs are expanded without loba r consolidation, pneumothoraces, juan francisco pulmonary edema, or pleural effusions. IMPRESSION: No acute process. POS: [facility]
--- NOTE | 2019-08-09 14:46 | CT ---
CT BRAIN WITHOUT CONTRAST: Date: 08/09/2019 HISTORY: Altered mental status. COMPARISON: 08/05/2019. FINDINGS: Changes of chronic small vessel ischemic disease are again seen. The ventricular size is stable and t he basilar cisterns are patent. No evidence of acute infarct, hemorrhage, midline shift, or abnormal extra-axial fluid collections are seen. The bony calvarium is intact. The visualized paranasal sinuse s are well aerated. IMPRESSION: Stable exam. No CT evidence of acute intracranial process. POS: [facility]
[2019-08-09] MEDS ORDERED: Heparin 1,000 UNITS/ML VIAL ONE ×2 (15:35→16:15)
--- NOTE | 2019-08-09 16:39 | PDOC.FPRHP ---
- History of Present Illness Chief Complaint: AMS History of Present Illness: 73yo M w/ pmhx of CAD, gastric cancer, chronic back pain and recent hernia repair presented to ED with complaint of AMS and aphasia. In April of this year the patient had a partial gastrectomy for gastric adenocarcinoma. Afterwards the patient lost a considerable amount of weight. With weight loss he noticed a visible inguinal hernia created by the box of his intrathecal pain pump he had that was managed by Dr. Yeimy Darling. Last week the patient had his inguinal hernia repaired and intra-thecal pain pump removed by Dr. Park. The day following the pt went to the ED and was found to have a spinal headache. He was admitted by Dr. Park and evaluated by Dr. Darling and neurosurgery who all felt no acute intervention was warranted. Pt was DC'd home with return precautions. Pt did well post operatively through the weekend until last night around midnight when he developed a bad headache and lower back pain per the patient's daughter, and also MPOA who has been staying with him. They brought him to the ED who diagnosed him with a continued spinal headache and over sedation from patient's home narcotics that his daughter reports he has taking over what he was prescribed. He was told to go home and return if he wasn't improved by night or if he worsens. Daughter brought pt to Dr. Gooden' office [employer] for possible blood patching of his CSF leak. While there Dr. Darling evaluated the patient and found that he was aphasic with global weakness and sent him to the ED. Initial ED workup showed the patient to be encephalopathic with a borderline temp of 100.1, elevated WBC and blood pressure. ED provider, Dr. Wyatt, was concerned about meningitis so he contacted IR for an LP due to pt's hx of spinal fusions. He was told IR would not be available to do the LP tonight and started pt on empiric abx. ED Course: Pt received IVF, vanc, and rocephin - Allergies/Adverse Reactions Allergies Allergy/AdvReac Type Severity Reaction Status Date / Time clarithromycin [From Biaxin] Allergy Intermediate Rash Verified 08/05/19 23:01 levofloxacin [From Levaquin] Allergy Intermediate Rash Verified 08/05/19 23:01 atorvastatin calcium Allergy MUSCLE Verified 08/05/19 23:01 [From Lipitor] CRAMPS sulfamethoxazole Allergy Verified 08/09/19 13:57 [From Bactrim] trimethoprim [From Bactrim] Allergy Verified 08/09/19 13:57 - Home Medications Medication Instructions Recorded Confirmed Type Clopidogrel Bisulfate [Plavix] 75 mg PO DAILY 06/05/13 08/05/19 History Budesonide-Formoterol [Symbicort 2 inh INH BID PRN 09/02/13 08/05/19 History 160-4.5] Escitalopram Oxalate [Lexapro] 10 mg PO QPM 11/25/14 08/05/19 History Hydrocodone Bit/Acetaminophen 1 - 2 tablet PO BID 12/02/14 08/05/19 History [HYDROcodone Bit/Acetaminophen] Alirocumab [Praluent Pen] 150 mg SQ ASDIR 08/14/16 08/05/19 History Nebivolol HCl [Bystolic] 5 mg PO QAM 08/14/16 08/05/19 History Ezetimibe 1 tab PO HS 06/10/17 08/05/19 History Amlodipine [Norvasc] 5 mg PO HS 12/21/18 08/05/19 History Cyanocobalamin (Vitamin B-12) 1,000 mcg PO DAILY 08/03/19 08/05/19 History [Vitamin B-12] Iron 18 mg PO DAILY 08/03/19 08/05/19 History Pantoprazole [Protonix] 40 mg PO DAILY 08/03/19 08/05/19 History Ubidecarenone [Co Q-10] 100 mg PO DAILY 08/03/19 08/05/19 History traZODone HCl [Trazodone HCl] 100 mg PO HS 08/03/19 08/05/19 History - History PMHx: COPD, CAD, GERD, Insomnia PSHx: Back, shoulder, wrist, intrathecal pain pump, inguinal hernia, CABG x3, partial gastrectomy FHx: No relevant Social: Current smoker, denies alcohol or drugs - Review of Systems ROS unobtainable: due to mental status Neurological: reports: other (headache) - Vital signs BP: 116/97, MAP: 103, Pulse: 94, Resp: 19 (Non-Labored), Temp: 99.5 (Rectal), Pain: UTR, O2 sat: 95 on (Room Air), Wt: 70kg - Physical Exam HEENT: PERRLA, conjunctiva clear, MMM Neck: supple -Neck: Pt appears in pain with neck flexion Heart: RRR, normal S1/S2 Lungs: CTAB, no respiratory distress Abdomen: soft, no masses/distention Musculoskeletal: normal structure -Neurological: Mostly aphasic, attempted to speak a few broken words. Opens eyes to his name, attempts to follow few simple commands but mostly unable. spontaneously moves upper and lower extremities. no obvious facial droop. Mildly positive brudzinksky Skin: no rash/lesions -Skin: lumbar incision s.p intrathecal pump removal. CDI FMR H&P: Results - Labs Result Diagrams: 08/09/19 13:32 08/09/19 13:32 Lab results: WBC 19.6 thou/uL (4.8-10.8) H 08/09/19 13:32 Hgb 13.6 g/dL (14.0-18.0) L 08/09/19 13:32 Hct 44.1 % (42.0-52.0) 08/09/19 13:32 MCV 92.2 fL (78.0-98.0) 08/09/19 13:32 Plt Count 300 thou/uL (130-400) 08/09/19 13:32 Neutrophils % 87.9 % (42.0-75.0) H 08/09/19 13:32 Sodium 135 mmol/L (136-145) L 08/09/19 13:32 Potassium 4.4 mmol/L (3.5-5.1) 08/09/19 13:32 Chloride 102 mmol/L (98-107) 08/09/19 13:32 Carbon Dioxide 22 mmol/L (23-31) L 08/09/19 13:32 BUN 11 mg/dL (8.4-25.7) 08/09/19 13:32 Creatinine 0.83 mg/dL (0.7-1.3) 08/09/19 13:32 Glucose 153 mg/dL (83-110) H 08/09/19 13:32 Lactic Acid 1.9 mmol/L (0.5-2.2) 08/09/19 13:56 Calcium 10.0 mg/dL (7.8-10.44) 08/09/19 13:32 Total Bilirubin 0.5 mg/dL (0.2-1.2) 08/09/19 13:32 AST 16 U/L (5-34) 08/09/19 13:32 ALT 12 U/L (8-55) 08/09/19 13:32 Alkaline Phosphatase 87 U/L (40-110) 08/09/19 13:32 Serum Total Protein 8.9 g/dL (5.8-8.1) H 08/09/19 13:32 Albumin 4.3 g/dL (3.4-4.8) 08/09/19 13:32 Urine Ketones 10 mg/dL (Negative) A 08/09/19 14:15 Urine Blood Negative (Negative) 08/09/19 14:15 Urine Nitrite Negative (Negative) 08/09/19 14:15 Ur Leukocyte Esterase Negative Samanta/uL (Negative) 08/09/19 14:15 - Radiology Interpretation CT scan - head Status: report reviewed by me (Stable exam. No CT evidence of acute intracranial process.) Chest x-ray Status: report reviewed by me (No acute process.) FMR H&P: A/P - Problem List (1) Encephalopathy Current Visit: Yes Status: Acute Code(s): G93.40 - ENCEPHALOPATHY, UNSPECIFIED (2) Systolic heart failure Current Visit: Yes Status: Acute Code(s): I50.20 - UNSPECIFIED SYSTOLIC ( CONGESTIVE) HEART FAILURE (3) S/P CABG (coronary artery bypass graft) Current Visit: No Status: Acute Code(s): Z95.1 - PRESENCE OF AORTOCORONARY BYPASS GRAFT (4) CAD in [place] artery Current Visit: No Status: Chronic Code(s): I25.10 - ATHSCL HEART DISEASE OF [place] CORONARY ARTERY W/O ANG PCTRS (5) Hyperlipidemia Current Visit: No Status: Chronic Code(s): E78.5 - HYPERLIPIDEMIA, UNSPECIFIED Qualifiers: Hyperlipidemia type: unspecified hyperlipidemia (6) Hypertension Current Visit: No Status: Chronic Code(s): I10 - ESSENTIAL (PRIMARY) HYPERTENSION Qualifiers: Hypertension type: essential hypertension Qualified Code(s): I10 - Essential (primary) hypertension - Plan Encephalopathy - AMS, Presumably 2/2 Meningitis - Recent intrathecal pain pump removal with subsequent spinal headache [address] Park - Dr. Park consulted from ED due to recent op, requested residents admit pt - Headache and back pain started at midnight last night - AMS developed gradually through the morning - Currently aphasic, somnolent, minimally following commands - MRI ordered - IR consulted for LP, CSF studies pending - Urine and blood cultures pending - CT head negative - Borderline temp of 100.1 in the ED, WBC 19.2 - CRP and procal pending - Received vanc and rocephin in ED, will continue empirically pending CSF results - Dysphagia screen, neurochecks, stroke floor Chronic opioid use - Pt takes 90mg oral morphine equivalents daily at home - Daughter reports she knows pt has addiction and tolerance to this - Consulted Dr. Darling regarding pain management and recommendations - Agreed upon 25mcg fentanyl TID lavonne and 2mg morphine q6 prn - Somnolence could be 2/2 to opioid abuse Chronic Medical Problems: HTN HLD Insomnia GERD Hx of CAD w/ Triple CABG - Med rec pending - Will plan to resume home rx who tolerating PO, initiate IV equivalents as able Code: Full - per MPOA IVF: LR @ 125 VTE: SCD Diet: NPO pending dysphagia screen Dispo: Admit to stroke floor for encephalopathy work up. Likely meningitis, will r/o CVA. ELOS >48hr FMR H&P: Upper Level - Pertinent history 73 year old male presents with altered mentation, worsening headache, low grade fever over the past day. Patient had surgery last to repair inguinal hernia. At that time, his intrathecal pump (morphine) was removed by Dr. Park, as well. The pump had been turned off for awhile and was likely contributing to inguinal hernia hence the decision for removal. Patient follows with Dr. Darling for chronic pain related to several spinal fusions. This was the reason for the pain pump which was placed years ago. Patient also diagnosed with stomach cancer and had partial removal in 04/2019. He is reportedly now cancer free per the daughter. Patient was seen in ED last night. He was sent home but noted to be altered/minimally responsive at that time. The thought was that he may be over-sedated from his medications. Daughter was advised to bring him back to ED if his mentation did not improve by mid afternoon. In the meantime, the daughter was taking him in for follow up with his auto customize painter, Dr. Darling. She was unable to arouse him enough to get him into the office, so Dr. Darling met them at their car. He noted that patient was not able to speak and was concerned for stroke so asked that they go to ED for further evaluation. In ED, patient noted to have temp to 100.1F. He was altered and oriented only to name. Patient's daughter states this has been gradual over the course of the day. He was able to wake up this morning, drink coffee, and smoke a cigarette. Per patient's daughter, patient does take a lot of pain medications. He has a prescription for [place] and takes more than prescribed. He is also on sedating medications at night. - Pertinent findings General: Opens eyes to stimulation and name. Speech incoherent. Unable to form phrases or say complete words/sentences. Cachectic appearing. HEENT: Dry MM. PEERLA. Head atraumatic. Card: RRR. Resp: CTA bilaterally, no acute respiratory distress. Neuro: Follows some commands. Contact Lens Lathe Operator strength intact. Moves all extremities. No apparent focal deficits. Opens eyes to stimulation. Withdrawals to pain. A&O x1 to person. Incoherent speech. Ext: No cyanosis or edema. - Plan Date/Time: 08/09/191638 I, Huma Savage, have evaluated this patient and agree with findings/plan as outlined by internet sales associate resident. Pertinent changes/additions are listed here. Ecephalopathy likely infectious 2/2 suspected meningitis: - AMS, severe headache, possible meningeal signs (moans with flexion of neck, keeps legs flexed), temp to 100.1F, WBC 19 - Dr. Park consulted by ED as this is within the 30 day period from recent admission. He requested residents admit patient. - Recent removal of intrethecal pump a week ago with persistent CSF leak, placing patient at high risk of infection - Unable to perform LP in ED due to several lumbar spinal fusions. IR consulted for IR guided LP. They were agreeable to getting this done within the three hour timeframe from starting antibiotics - Continue Vanc, ceftriaxone, ampicillin (08/08) - CSF studies pending - Blood cultures, urine cultures pending - UA clean - Q4h neuro checks - CT brain negative, MRI brain pending - CRP and Procal pending - Suspect encephalopathy could be to over sedation/overdose of opiate medication. Spoke with Dr. Darling and pain regimen discussed. Will start patient on fentanyl 25 mcg and 2mg morphine q6h PRN. Do not give patient over this amount of medication as we need to be able to assess mental status, and patient known to ask for more pain medications on a regular basis - Dysphagia screen pending Spinal headache 2/2 CSF leak from recent removal of intrathecal pump - Discussion regarding blood patch by auto customize painter. She went to get blood patch done at Dr. Darling's office this afternoon, but on arrival unable to get patient out of car due to mentation. Dr. Darling concerned for stroke, so patient sent to ED. - Given concern for meningitis, patient not a great candidate for blood patch at this time. If meningitis can be ruled out, can attempt blood patch Chronic opioid use - Pain regimen 90 mg oral morphine equivalents at home - Daughter reports addiction and tolerance to pain medications - Dr. Darling consulted regarding pain management recommendations: 25 mcg fentanyl patch and 2mg morphine q6h PRN - Somnolence Chronic opioid use - Pt takes 90mg oral morphine equivalents daily at home - Daughter reports she knows pt has addiction and tolerance to this - Consulted Dr. Darling regarding pain management and recommendations - Agreed upon 25mcg fentanyl TID lavonne and 2mg morphine q6 prn - Somnolence could be 2/2 to opioid abuse; will monitor patient's status with scheduled opiates HTN - Continue home medications - IV PRN medications if not tolerating PO HLD - Continue home medications when tolerating PO Insomnia - Hold medications given recent mental status GERD - Continue home medications when tolerating PO - At risk for aspiration; will avoid feeding until passes bedside swallow Hx of CAD w/ Triple CABG - Med rec pending - Will plan to resume home rx who tolerating PO, initiate IV equivalents as able Code status: Full code. Recent Palliative Care consult with these wishes and daughter who is Kellie voiced these were his wishes. Diet: NPO until passes bedside swallow DVT PPX: Will hold for now given anticipation of procedure Dispo: Admit to stroke unit. Anticipate LOS >48 hours.
[2019-08-09] MEDS ORDERED: Ondansetron PF 4 MG/2 ML Vial ONE (17:22)
[2019-08-09] MEDS ORDERED: Ondansetron PF 4 MG/2 ML Vial IVP PRN ×2 (18:53→20:40)
[2019-08-09] MEDS ORDERED: Ondansetron ODT 4 MG TAB SL PRN (18:53)
[2019-08-09] MEDS ORDERED: Acetaminophen 325 MG TAB PO PRN ×2 (18:53→20:40)
[2019-08-09] MEDS ORDERED: Lactated Ringer's 1,000 ML IV SCH (19:00)
[2019-08-09 19:24] LABS: Unspun CSF Color COLORLESS (Colorless)
[2019-08-09 19:25] LABS: Color Of CSF Supernatant COLORLESS (Colorless); Tube # 2
--- NOTE | 2019-08-09 19:33 | RAD ---
LUMBAR PUNCTURE: INDICATION: Concern for meningitis TECHNIQUE: Informed consent was obtained. Preprocedure icing maker images were performed for guidance purposes. Site overlying an L4-5 laminectomy defect site was marked. The site was prepped and draped in the usu al sterile fashion. Buffered 1% lidocaine was administered to the overlying subcutaneous tissues. Under fluoroscopic guidance, a 20-gauge spinal needle was guided down into the thecal sac. There was spontaneous return of normal appearing CSF fluid. Following this 15 cc of cloudy appearing CSF fluid was collected in 4 separate aliquots. The inner st ylette was replaced. The patient tolerated the procedure without difficulty. Total fluoroscopic time was 0.3 minutes. Total exposure was 642.2microGy/m2. FINDINGS: There are laminectomies at L3, L4 and L5. There is left-sided SI joint arthrodesis screws partially v isualized. There are bilateral pedicle screws at L3-L5 with interconnecting rods. No acute fracture is demonstrated. IMPRESSION: Successful lumbar puncture with removal of 15 cc of cloudy appearing CSF fluid.
[2019-08-09 19:37] LABS: CSF, Glucose 41 mg/dl (40-70)
[2019-08-09 19:39] LABS: CSF Source CSF; Clarity Cloudy/Turbid (Clear); Tube # 4
[2019-08-09 19:40] LABS: CSF Source CSF; Clarity Cloudy/Turbid (Clear); Tube # 1
[2019-08-09 20:08] LABS: Cell Count Non Hematic 13 %; Lymphocytes 3 %; Segmented Neutrophils 83 %
[2019-08-09 20:08] LABS: Cell Count Non Hematic 9 %; Lymphocytes 4 %; Segmented Neutrophils 87 %
[2019-08-09 20:11] LABS: CSF, Protein 764 mg/dL (15-40)
[2019-08-09] MEDS ORDERED: Morphine 2 MG/ML SYRINGE SLOW IVP PRN (20:40)
[2019-08-09 21:42] LABS: Amphetamine Not Detected (NotDetected); Barbiturates Screen Detected (NotDetected); Benzodiazepine Screen Not Detected (NotDetected); Cocaine Metabolite Screen Not Detected (NotDetected); Medtox Control Line Valid? VALID (VALID); Medtox Reader # READER 4; Methadone Not Detected (NotDetected); Methamphetamine Not Detected (NotDetected); Opiate Screen Detected (NotDetected); Oxycodone Screen Detected (NotDetected); Phencyclidine (PCP) Not Detected (NotDetected); THC/Cannabinoid Screen Not Detected (NotDetected); Tricyclic Screen Not Detected (NotDetected)
[2019-08-09] MEDS: Acetaminophen 650 MG Suppository PR SCH (22:16)
[2019-08-09] MEDS: Famotidine/PF 20 mg/2ml Vial SLOW IVP SCH (22:16)
[2019-08-09] MEDS: Lactated Ringer's 1,000 ML IV SCH (22:16)
[2019-08-09 22:27] LABS: INR-International Normal Ratio 1.1; PTT 30.4 sec (22.9-36.1); Prothrombin Time 13.8 sec (12.0-14.7)
[2019-08-10] MEDS: Ampicillin 2 GM in Sodium Chloride 0.9% 100 ML IVPB SCH ×6 (00:44→13:31)
[2019-08-10] MEDS: Acetaminophen 650 MG Suppository PR SCH ×6 (03:18→20:45)
[2019-08-10] MEDS: cefTRIAXone\\ROCEPHIN 2 GM in Sodium Chloride 0.9% 100 ML IVPB SCH ×2 (03:46→14:22)
[2019-08-10 04:00] VITALS: BMI 20.9
[2019-08-10] MEDS: Vancomycin 1 GM in Premix Bag 1 BAG IVPB SCH ×2 (04:28→16:00)
[2019-08-10 04:29] LABS: #Monocytes 0.5 thou/uL (0.11-0.59); #Neutrophils 12.4 thou/uL (1.40-6.50); %Basophils 0.1 % (0.0-1.0); %Eosinophils 0.1 % (0.0-10.0); %Lymphocytes 7.4 % (21.0-51.0); %Monocytes 3.5 % (0.0-10.0); Hemoglobin 12.7 g/dL (14.0-18.0); Mean Corpuscular HGB CONC 31.7 g/dL (32.0-36.0); Mean Corpuscular Hemoglobin 29.3 pg (27.0-31.0); Mean Corpuscular Volume 92.4 fL (78.0-98.0); Mean Platelet Volume 7.8 fL (7.4-10.4); Platelet Count 220 thou/uL (130-400); RBC Distribution Width 19.4 % (11.5-14.5); Red Blood Cell (RBC) Count 4.34 mill/uL (4.70-6.10)
[2019-08-10 04:51] LABS: Anion Gap 17 mmol/L (10-20); BUN (Urea Nitrogen) 10 mg/dL (8.4-25.7); Calc. Creatinine Clearance 93 mL/min (70-130); Calcium 9.3 mg/dL (7.8-10.44); Carbon Dioxide 16 mmol/L (23-31); Chloride 102 mmol/L (98-107); Estimated GFR-MDRD Greater than 90; Glucose 125 mg/dL (83-110); Potassium 3.6 mmol/L (3.5-5.1); Sodium 131 mmol/L (136-145)
[2019-08-10] MEDS ORDERED: Metoprolol Tartrate 5 MG/5 ML VIAL IVP PRN (05:48)
--- NOTE | 2019-08-10 05:51 | PDOC.FM ---
- Subjective Subjective: Minimally alert this morning. Bacterial meningitis confirmed overnight. No acute events overnight. Pt did fever. - Objective Vital Signs & Weight: Vital Signs (12 hours) Temp Pulse Resp BP Pulse Ox 08/10/19 03:30 98.9 F 95 18 198/95 H 100 08/10/19 00:20 99.8 F H 91 20 184/94 H 96 08/09/19 18:54 100.9 F H 91 18 171/84 H 95 Weight Weight 68.13 kg Result Diagrams: 08/10/19 04:15 08/10/19 04:15 Phys Exam - Physical Examination Constitutional: NAD pupils constricted Neck: supple few scant crackles diffusely, upper airway mucous audible Cardiovascular: RRR Gastrointestinal: soft, no distention Musculoskeletal: no edema, pulses present Arouses to stimulation, attempts to verbalize answers - minimally able Skin: no rash Dx/Plan - Plan Plan: Encephalopathy 2/2 Bacterial Meningitis - Recent intrathecal pain pump removal with subsequent spinal headache last week - Currently aphasic, somnolent, minimally following commands - MRI ordered - LP by IR last night - CSF studies showed low normal glucose, elevated protein and elevated WBC @ 87 % neutrophils indicating bacterial etiology - Started on ampicillin, vancomycin, and rocephin - Will likely need to get ID involved for assistance in detention abx tx - Urine and blood cultures pending - Fevered last night - CRP 13, Procal 0.1 - Dysphagia screen, neurochecks, stroke floor Chronic opioid use - Pt takes 90mg oral morphine equivalents daily at home - Daughter reports she knows pt has addiction and tolerance to this - Consulted Dr. Darling regarding pain management and recommendations - Agreed upon 25mcg fentanyl TID lavonne and 2mg morphine q6 prn - Dr. Darling to see pt today - No obvious sings of withdrawal this morning, did have some mildly constricted pupils HTN - Currently NPO and unable to take home meds - Lopressor 5mg IV q6hr ordered - PRN hydralazine HLD - Hold statin while NPO GERD - Famotidine IV while NPO Hx of CAD w/ Triple CABG - Med rec pending, daughter to bring med list from pt's PCP today - Will plan to resume home rx who tolerating PO, initiate IV equivalents as able Code: Full - per MPOA IVF: LR @ 125 VTE: SCD Diet: NPO pending dysphagia screen Dispo: Stroke floor inpt for bacterial meningitis treatment. Continuous neuro eval. ELOS > 48 hr. Addendum - Attending - Attending Attestation Date/Time: 08/12/191948 I personally evaluated the patient and discussed the management with Dr. Cason on 08/10/19 I agree with the History, Examination, Assessment and Plan documented above with any addition or exceptions noted below - Patient more alert. Afebrile VSS. A/P: 1) Meningitis - continue current abx; appreciate ID recommendations. 2) COPD- stable
[2019-08-10] MEDS ORDERED: Metoprolol Tartrate 5 MG/5 ML VIAL IVP SCH ×2 (07:45→12:00)
--- NOTE | 2019-08-10 09:44 | MRI ---
MRI BRAIN WITHOUT CONTRAST: HISTORY: Altered mental status CORRELATION: CT scan from 08/09/2019. FINDINGS: Exam is limited due to motion artifact. No restricted diffusion is seen. There are multiple foci of T2 prolongation in the periventricular wh ite matter, consistent with chronic small vessel ischemic disease. The ventricular size is appropriate and the basilar cisterns are patent. No evidence of acute infarct, hemorrhage, midline shift or abnormal extra-axial fluid collections is seen. IMPRESSION: No evidence of acute intracranial process.
[2019-08-10] MEDS: Famotidine/PF 20 mg/2ml Vial SLOW IVP SCH ×2 (09:59→20:45)
[2019-08-10] MEDS: hydrALAZINE 20 MG/ML VIAL SLOW IVP PRN ×3 (10:39→18:06)
[2019-08-10] MEDS: Lactated Ringer's 1,000 ML IV SCH ×2 (13:28→21:08)
[2019-08-10] MEDS: Metoprolol Tartrate 5 MG/5 ML VIAL IVP SCH ×2 (14:30→21:09)
[2019-08-10] MEDS: Meropenem 2 GM, Admixture Fee 1 EACH in Sodium Chloride 0.9% 100 ML IVPB SCH (18:07)
--- NOTE | 2019-08-10 23:10 | CON ---
DATE OF CONSULTATION: 08/10/2019 REASON FOR CONSULTATION: Meningitis. HISTORY OF PRESENT ILLNESS: A 73-year-old who has a history of COPD and hypertension, prior lumbar spine surgeries, chronic back pain with pain pump and then a nerve stimulator placed, who developed altered mental status. Apparently , he had an inguinal hernia repair and removal of intrathecal pump by Dr. Park. He had intrathecal pump placed on December 22, 2018, by Dr. Darling and now Dr. Park removed it. The reason for removal is because the pump was not being effective. At the same time, he had an inguinal herniorrhaphy. The operative report was reviewed and the catheter was able to be removed quickly from the intrathecal space. There was a brisk flow of CSF fluid noted and this was controlled with a figure of eight Prolene suture. This was done on August 04. Subsequently, the patient came back to the emergency room because he noticed significant leakage of CSF since the surgery. He also developed headache but no fever, chills. Labs did not show any abnormalities, so patient was given fentanyl for pain and he was admitted after that. He was discharged on the next day. Neurosurgery Department was consulted. CT did not show any lesion. He was treated with recumbency and reverse Trendelenburg, so no blood patch was felt to be necessary and he was discharged. He comes back on the with altered mental state associated with a headache. He had a temp of 100.1. Other findings, BP 180/100, pulse 97, respirations 18, temperature 98.7, O2 saturations were 97 on room air. He appeared confused, lethargic. It is stated in the note that he was able to follow some commands and established eye contact briefly. Other findings included white cell count 19.6, hemoglobin 13.6 , platelets 300 with 87% neutrophils and followup WBC 14 with 89% neutrophils. Chemistry with a creatinine 0.83 and 0.68. Liver profile normal. Albumin 4.3. Serum total protein 8.9. CRP was 13. Procalcitonin was 0.1. Urinalysis was fairly unremarkable. CSF evaluation was done and it showed 7000 WBCs with predominance of neutrophils, glucose was 41 with a serum glucose of 153. We have 2 sets of blood cultures thus far no growth and have a CSF fluid culture pending. No organisms seen in the Gram stain. A brain MRI has been completed today and it showed no acute intracranial process noted and a chest x-ray, no acute process noted. Currently pt is obtunded and unable to provide a review of systems. No reported seizure activity. PMSHx: COPD, HTN, prior LS surgeries, chronic LBP with pain pump and spinal stimulator device. CAD, CABG, GERD All: Sulfa, Quinolones, Biaxin, Lipitor SHx: Retired/disabled, current smoker, no etoh Meds: Plavix, Budesonide, Hydrocodone, Alirocumab, Nebivolol, Ezetimibe, Norvasc , Pantoprazole Trazodone, Rocephin, Ampicillin, Vancomycin. P.Ex: Tm 100.9, current 98.6 190/88, rr 20, Osat 96% Skin: peripheral iv access, voiding in diaper LN: none enlarged, keeps eyes closed, briefly opens them when his name is called but falls asleep promptly. Constricted pupils. Sclerae clear. Oral cavity dry, numerous missing teeth, gum resorption Neck supple. No jvd. Lungs with bilateral BS no crackles or wheezing. S1S2, no S3, no murmurs. rrr Soft abd without guarding. Not distended. BS present and normal. No ascites. No bladder distension. Genital area wnl. No edema. Plantar responses mostly withdrawal. No clonus. Seems to move all extremities. Obtunded, unable to interact with examiner or follow commands. Latest results: wbc 14.0, 89%N, Plt 220, Na 131, Creat 0.68, UA wnl CSF as noted above, cultures pending. ASSESSMENT: Chronic back pain, prior pain pump and then back stimulator, which has been removed just a few days ago. 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 DISCUSSION: Both cranial as well as lumbar CSF leaks can be associated with a higher incidence of bacterial meningitis. The organisms involved include gram-negative rods such as Klebsiella, Pseudomonas, Acinetobacter, as well as gram-positive cocci such as corynebacterium, Staphylococcus aureus and coagulase-negative staphylococci as well as streptococci. The patient does not seem to have any other complications right now and we will transition him to meropenem, discontinue Rocephin. The dose will be 2 g q.8 and we will continue vancomycin and discontinue ampicillin. In view of pupillary constriction, there might be an element of opioid associated altered mental status. Job ID: [id number] [facility]
[2019-08-11] MEDS: hydrALAZINE 20 MG/ML VIAL SLOW IVP PRN ×2 (00:06→04:39)
[2019-08-11] MEDS: Acetaminophen 650 MG Suppository PR SCH ×2 (00:06→04:39)
[2019-08-11] MEDS ORDERED: Labetalol HCl 100 MG/20 ML VIAL SLOW IVP PRN (00:15)
[2019-08-11] MEDS: Meropenem 2 GM, Admixture Fee 1 EACH in Sodium Chloride 0.9% 100 ML IVPB SCH ×3 (01:43→20:16)
[2019-08-11] MEDS: Vancomycin 1 GM in Premix Bag 1 BAG IVPB SCH ×3 (01:44→18:26)
[2019-08-11] MEDS: Metoprolol Tartrate 5 MG/5 ML VIAL IVP SCH (01:44)
[2019-08-11] MEDS: Lactated Ringer's 1,000 ML IV SCH ×2 (01:56→15:50)
[2019-08-11 02:17] LABS: Vancomycin, Trough 8.1 ug/mL
--- NOTE | 2019-08-11 05:59 | CON ---
DATE OF CONSULTATION: 08/10/2019 REASON FOR CONSULT: Pain. CHIEF COMPLAINT: Altered mental status. HISTORY OF PRESENT ILLNESS: The patient is a 73-year-old male with past medical history of CAD, gastric cancer status post resection, chronic back pain, and recent hernia repair as well as recent intrathecal pump removal, who presented to the ER yesterday at noon with altered mental state and aphasia. The patient had his intrathecal pump removed on and subsequently developed a dural leak. He had been admitted to the hospital that night and was seen on August 05. At this point, it was concluded that the dural leak had slowed and we advised the patient to sterilely change his dressings, or his daughter to sterilely change his dressings and was discharged home. At some point Friday morning around 2 in the morning, he was brought to the emergency room with a spinal headache as well as lower back pain. The patient was sent home; however, he developed altered mental state and aphasia, for which they called me and we brought him into the office as soon as possible. Before we got him out of the car, I assessed him and he was having aphasia and was nonresponsive, though he was awake and so we sent him to the emergency room. At the emergency room, he was found to have what was consistent with possible meningitis or encephalitis. CT scan ruled out stroke and his brain MRI today has ruled out stroke as well. Spinal fluid taken last night reveals likely bacterial meningitis with nothing grown from the cultures. He is on broad-spectrum antibiotics currently. Today, he is afebrile at 98.5 degrees. He is sitting in bed. He does respond, however, his speech is either inappropriate or broken. The patient does respond to verbal commands and moves all extremities on verbal command. When I asked if he has pain, he does say yes. When I ask him if he has pain in his head, he says yes. When I asked if he has pain in his lower back, he says yes. No other assessment can be done as the patient is aphasic. REVIEW OF SYSTEMS: Unable to obtain due to the patient's aphasia. Attempts to obtain general, eyes, cardiovascular, pulmonary, gastrointestinal, musculoskeletal, neurologic, and psychiatric; however, we were unable to obtain more than the history of present illness. PAST MEDICAL HISTORY: Hypertension, peripheral vascular disease, gout, sleep apnea, COPD, chronic lumbar pain, GERD, hearing loss, high cholesterol, high blood pressure, and history of stomach cancer. PAST SURGICAL HISTORY: Cardiac cath, stent placement, cardiac bypass surgery, back surgery x4 in the lumbar spine, knee surgery, repair of fractured wrist and arm, repair of shoulder right side x2, SI joint fusion, removal of gastric cancer last week, and hernia repair as well as intrathecal pump removal. HOSPITALIZATIONS: See last week in [facility]. FAMILY HISTORY: Father at 98 from bone cancer. Mother , stroke at 77 years old. Spouse is alive, though she left him last week unfortunately, has 5 daughters who are healthy, who are helping him currently. SOCIAL HISTORY: See part of family history. Smokes less than half a pack a day. Does not drink. Does not do drugs. Lives at home. MEDICATIONS: On outpatient basis; 1. Percocet 10/325 mg 1 to 2 every 6 hours p.r.n. pain maximum of 6 pills per day. 2. Escitalopram. 3. Dexilant. 4. Bystolic. 5. Symbicort. 6. Albuterol. ALLERGIES: TO LIPITOR CAUSING MUSCLE CRAMPS. PHYSICAL EXAMINATION: VITAL SIGNS: Temperature 98.5, pulse is 93, respirations 18, O2 saturation 97 on room air, and blood pressure is 202/107, however, this was prior to the nurse placing the fentanyl patch. GENERAL: Unable to assess orientation, but the patient is alert. He does follow verbal commands. HEENT: PERRLA. Conjunctivae are clear. NECK: Supple. No masses felt. CARDIOVASCULAR: Normal pulses. No peripheral vascular swelling or varicosities seen. No tenderness or edema in the lower extremity. RESPIRATIONS: Symmetric. Nonlabored respirations. SKIN: Normal turgor. Warm and dry. No masses or rashes or edema. The wound in his back appears clean, dry, and intact. We changed the dressing sterilely. Some tenderness to palpation of the lumbar spine. Some increase in pain with neck flexion. There are grimace to neck flexion. Motor systems are 5/5 in bilateral upper and lower extremities. Sensory is intact grossly in the lower extremity. Reflexes are normal in the bilateral patella and symmetric in the Achilles. DIAGNOSTIC STUDIES: CT scan of the brain was negative. MRI of the brain today was negative except for chronic ischemic changes. ASSESSMENT AND PLAN: 1. Bacterial meningitis. Though rare, this could be a complication of a dural leak. The patient has been placed on broad-spectrum antibiotics and his white count does seem to be trending down. dexamethasone started as well to help decrease neurological sequela. He is currently afebrile. No growth of organisms. I recommend consulting Infectious Disease for advice on continued treatment of bacterial meningitis. 2. Dural leak. Dressing seemed to be dry. wounds was cleaned and Dressing was changed today. Dural leak is likely self-limited. Continue IV fluids. 3. Chronic lower back pain. The patient at home is on Percocet 60 mg a day, which is equivalent to 90 MEq morphine per 24 hours. Due to his altered mental status and aphasia and inability to take oral medication, we switched him to a fentanyl 25 mcg patch yesterday; however, this was not placed until today. I have hopes that this will decrease his hypertension. If not, the primary team may have to work up causes of the hypertension that are not related to pain. He is not currently having any signs and symptoms of withdrawal. The 90 _MEq morphine a day that the patient is tolerant to would be equivalent to approximately 50 mcg fentanyl patch. We cut it in half to ensure that his mental state could be adequately assessed. Continue his medication regimen as prescribed currently. We will continue monitoring. Please do not hesitate to call us if there is any pressing issue that we need to address in regard to his pain. Job ID: [id number] [facility]
--- NOTE | 2019-08-11 06:16 | PDOC.FM ---
Addendum entered and electronically signed by Juan Diego Cason, 08/11/19 09:02 : Rocephin and ampicillin DC'd per Dr. Scott - cont vanc and meropenem Addendum entered and electronically signed by Juan Diego Cason, 08/11/19 08:51 : Objective: Pt is awake, talking, and eating this morning. His main complaint this morning is the pain in his back. I discussed with him his current pain regimen and why he is currently being under dosed from his home regimen. He expressed understanding and that he hopes we can do something more to help decrease his pain. Denies any headaches, fevers, neck stiffness outside of his baseline. Original Note: - Objective Vital Signs & Weight: Vital Signs (12 hours) Temp Pulse Resp BP BP Pulse Ox 08/11/19 04:39 100 182/86 H 08/11/19 04:28 98.6 F 97 18 178/103 H 98 08/11/19 00:27 99.0 F 100 20 190/88 H 96 08/11/19 00:06 100 190/88 H 08/10/19 21:35 98.8 F 98 20 182/89 H 96 Weight Admit Weight 68.13 kg Weight 68.13 kg I&O: 08/09/19 08/10/19 08/11/19 06:59 06:59 06:59 Intake Total 6689.25 Balance 6689.25 Result Diagrams: 08/10/19 04:15 08/10/19 04:15 Phys Exam - Physical Examination Constitutional: NAD HEENT: moist MMs, sclera anicteric Neck: full ROM mild upper airway mucous audible Cardiovascular: RRR Gastrointestinal: soft, non-tender Musculoskeletal: no edema Neurological: non-focal, moves all 4 limbs follows commands, no facial droop, very slight slur Psychiatric: normal affect Deviation from normal: pt alert, oriented to person, place, and partially time Skin: no rash Dx/Plan - Plan Plan: Encephalopathy 2/2 Bacterial Meningitis - Recent intrathecal pain pump removal with subsequent spinal headache last week - CSF confirming bacterial cause, currently no organisms - Currently aphasic, somnolent, minimally following commands - MRI: No acute findings - Started on ampicillin, vancomycin, and rocephin - Consulted ID, Dr. Scott, added meropenam - Urine and blood cultures pending - ST consulted: rec puree diet Chronic opioid use - Pt takes 90mg oral morphine equivalents daily at home - Daughter reports she knows pt has addiction and tolerance to this - Consulted Dr. Darling regarding pain management and recommendations - Now that pt tolerating PO, discussed pain management with Dr. Darling - Recommend continuing home PO regimen prn and keep on fentanyl, will adjust tomorrow based on prn usage - No obvious sings of withdrawal this morning, did have some mildly constricted pupils HTN - Still pending full med rec as daughter brought incomplete med list - Transitioned pt to PO rx today - metoprolol succ 100mg - amlodipine 5mg HLD - pt is on injectable rx, will hold currently GERD - pt will puree diet, can now resume home ppi Hx of CAD w/ Triple CABG - Will plan to resume home rx when known Code: Full - per MPOA IVF: LR @ 125 VTE: SCD Diet: NPO pending dysphagia screen Dispo: Stroke floor inpt for bacterial meningitis treatment. Continuous neuro eval. ELOS > 48 hr. Addendum - Attending - Attending Attestation Date/Time: 08/12/191950 I personally evaluated the patient and discussed the management with Dr. Cason on 08/10 I agree with the History, Examination, Assessment and Plan documented above with any addition or exceptions noted below- Patient awake/alert. Afebrile VSS. A/P: 1) Meningitis -continue Vanc and meropenem; cultures pending. 2) Encephalopathy- improved. 3) Chronic back pain- medications adjustedas per Dr. Darling's recommendations.
[2019-08-11] MEDS ORDERED: Metoprolol Tartrate 5 MG/5 ML VIAL IVP SCH (07:00)
[2019-08-11] MEDS ORDERED: Acetaminophen 325 MG TAB PO PRN (08:55)
[2019-08-11] MEDS: Amlodipine 5 MG TAB PO SCH (09:20)
[2019-08-11] MEDS: Cyanocobalamin (Vitamin B-12) 1,000 MCG TAB PO SCH (09:20)
[2019-08-11] MEDS: oxyCODONE/Acetaminophen 5 mg/325 mg Tablet PO SCH ×2 (11:33→18:26)
--- NOTE | 2019-08-11 16:40 | PDOC.FMACP ---
Advance Care Planning - Problem (1) Systolic heart failure Status: Acute Code(s): I50.20 - UNSPECIFIED SYSTOLIC (CONGESTIVE) HEART FAILURE (2) Palliative care encounter Status: Acute Code(s): Z51.5 - ENCOUNTER FOR PALLIATIVE CARE (3) COPD (chronic obstructive pulmonary disease) Status: Chronic - Note Participants: patient, family, palliative care Summary: Palliative Care revisited Advanced Care Planning, allowed opportunity to decline. The diagnosis, prognosis and goals of care were again discussed. Appropriate forms and documentation to accomplish the goals of care were discussed. Will redo Directive To physicians as prior document is not valid. Confirmed that his daughter listed is MPOA. Family meeting coordinated for 08/11 to have a conference call with all his children and streamline all communication through the [facility]. His is to not be given information as she has established that the marriage will resolve and she has transitioned out of the home setting. All questions were answered. The Palliative Care Team will continue to assist with completion of any outstanding forms that are needed. Please refer to Phil Reyes RN notes in note section. Time Spent (mins): 45
[2019-08-11] MEDS: Mometasone 200 MCG/Formoterol 5 MCG 120 PUFF INHALER INH SCH (18:54)
--- NOTE | 2019-08-11 19:00 | PRG ---
DATE OF SERVICE: 08/11/2019 SUBJECTIVE: Mr. Leal is totally awake and he is oriented. Denies any headaches. No shortness of breath, cough, sputum production, or chest pain or abdominal pain. OBJECTIVE: GENERAL: He is pleasant. VITAL SIGNS: Afebrile, BP 140/67, pulse 82, and respirations 18. HEENT: His ocular movements conjugate, establishes eye contact, little hearing impairment. LUNGS: Symmetric clear breath sounds. HEART: S1 and S2, regular rate. ABDOMEN: Soft and nondistended. EXTREMITIES: Moves extremities equally. LABORATORY DATA: White cell count down to 14, that is yesterday. We have no new chemistry results, cultures are still pending. Nothing yet resulted. Brain MRI was carried out yesterday, which did not show any acute intracranial process. ASSESSMENT AND DISCUSSION: Chronic back pain, prior pain pump and then back stimulator which has been removed. Cerebrospinal fluid leak and now cerebrospinal fluid leak associated meningitis. Again, various organisms can be associated, usually gram negatives such as Pseudomonas, Klebsiella and so on, as well as gram-positives including Corynebacterium, Staph aureus and coagulase-negative staphylococci as well as streptococci. Continue meropenem and vancomycin. Wait for culture results. The duration of therapy will be usually around 10 days approximately unless it is Staphylococcus aureus. Job ID: [id number]
[2019-08-11] MEDS: Escitalopram Oxalate 10 mg Tablet PO SCH (20:16)
--- NOTE | 2019-08-11 23:38 | PRG ---
DATE OF SERVICE: TEAM: Pain Management. CHIEF COMPLAINT: Back pain this morning. SUBJECTIVE: The patient is awake and talking and eating this morning. He is alert and oriented x4. His main complaint is back pain. He states he currently continues to have headaches. Otherwise, he is doing much better. He denies nuchal rigidity, fevers, or neck stiffness. OBJECTIVE: VITAL SIGNS: Temperature 98.1, pulse 83, respirations 18, O2 saturation 96 on room air, blood pressure 180/89. GENERAL: Alert and oriented x4, currently in no acute distress. HEENT: Pupils are equally round and reactive to light and accommodation. Moist mucous membranes. NECK: Full range of motion. Some tenderness to palpation in the bilateral paraspinous musculature of the cervical spine. CARDIOVASCULAR AND PULMONARY: Symmetric, nonlabored respirations. GASTROINTESTINAL: Soft, nontender, nondistended. MUSCULOSKELETAL: No edema. Moving all extremities, 5/5 strength. No focal deficits. NEUROLOGICAL: Follows commands. Reflexes are intact. PSYCH: Normal affect. SKIN: Dressing in the lumbar spine is intact and it is dry. ASSESSMENT AND PLAN: Encephalopathy secondary to bacterial meningitis. The patient has been seen by Infectious Disease, and they are treating the patient with broad-spectrum antibiotics as well as dexamethasone. The patient has improved substantially overnight. We will defer to Primary Team and Infectious Disease on this. Chronic back pain. We switched the patient over to Percocet 10/325 mg one p.o. q.4 hours p.r.n. pain this morning. We will continue the fentanyl patch for now and adjust this based on the p.r.n. usage tomorrow. No signs of withdrawal. Dural leak. The patient's dressing is dry and intact. This is likely stopped. Job ID: [id number]
[2019-08-12] MEDS: oxyCODONE/Acetaminophen 5 mg/325 mg Tablet PO SCH ×4 (00:27→20:40)
[2019-08-12 02:31] LABS: Vancomycin, Trough 17.7 ug/mL
[2019-08-12] MEDS: Meropenem 2 GM, Admixture Fee 1 EACH in Sodium Chloride 0.9% 100 ML IVPB SCH ×3 (03:02→18:35)
[2019-08-12] MEDS: Vancomycin 1 GM in Premix Bag 1 BAG IVPB SCH ×3 (03:38→18:35)
[2019-08-12] MEDS: Mometasone 200 MCG/Formoterol 5 MCG 120 PUFF INHALER INH SCH ×2 (06:18→18:57)
--- NOTE | 2019-08-12 08:55 | PDOC.FM ---
- Subjective Subjective: Pt doing very well this morning. States he feels better now than he has in a long time. Denies any headache. Notes mild conitnued chronic back pain. Tolerating PO well. Had 10 beats of SVT last night on monitor but was sleeping and asx. - Objective Vital Signs & Weight: Vital Signs (12 hours) Temp Pulse Resp BP Pulse Ox 08/12/19 08:00 98.8 F 82 16 145/80 H 94 L 08/12/19 06:22 96 08/12/19 06:18 84 16 96 08/12/19 03:33 97.5 F L 77 16 166/83 H 98 08/12/19 00:31 98.0 F 75 16 166/81 H 97 Weight Admit Weight 68.13 kg Weight 68.13 kg I&O: 08/11/19 08/12/19 08/13/19 06:59 06:59 06:59 Intake Total 6689.25 1969.5 Output Total 1400 Balance 6689.25 569.5 Result Diagrams: 08/10/19 04:15 08/10/19 04:15 Phys Exam - Physical Examination Constitutional: NAD HEENT: moist MMs Neck: full ROM Respiratory: clear to auscultation bilateral Cardiovascular: RRR Gastrointestinal: soft Musculoskeletal: no edema Neurological: moves all 4 limbs Psychiatric: normal affect, A&O x 3 Skin: no rash Dx/Plan - Plan Plan: Bacterial Meningitis (Encephalopathy resolved) - Currently on meropenem, vanc - Cultures pending - ID, Dr. Scott consulting - recommends 10d duration of IV abx unless staph aur - Consult CM for outpt abx assistance - PICC line ordered Chronic opioid use - Pt takes 90mg oral morphine equivalents daily at home - Discussed pain management with Dr. Darling - Recommend continuing home PO regimen prn and keep on fentanyl, will adjust tomorrow based on prn usage HTN - metoprolol succ 100mg, amlodipine 5mg - Fair control currently, will monitor bp today to trend and consider adjustments HLD - pt is on injectable rx, will hold currently GERD - Home PPI Hx of CAD w/ Triple CABG - Will plan to resume home rx when known Code: Full - per MPOA IVF: LR @ 125 VTE: SCD Diet: NPO pending dysphagia screen Dispo: Stroke floor inpt for bacterial meningitis treatment. Pt's mental status is back at baseline. Pt is expressed a great desire to be DC'd today. Instructed him that we are awaiting blood cultures and will need to set up outpt IV abx first. Addendum - Attending - Attending Attestation Date/Time: 08/12/191952 I personally evaluated the patient and discussed the management with Dr. Cason on 08/12/19 I agree with the History, Examination, Assessment and Plan documented above with any addition or exceptions noted below - Patient without complaints; pulled PICC line out and IV; wanted to go home. Patient counselled by Dr. Cason regarding need for PICC line and IV abx. Afebrile VSS. A/P: 1) Meningitis - cultures negative but did receive abx prior to culture being obtained; continue current abx and will await further recommendations from Dr. Scott. Will have PICC line replaced in AM. 2) Chronic back pain- continue current meds.
[2019-08-12] MEDS: Amlodipine 5 MG TAB PO SCH (09:35)
[2019-08-12] MEDS: Cyanocobalamin (Vitamin B-12) 1,000 MCG TAB PO SCH (09:36)
[2019-08-12] MEDS: Clopidogrel Bisulfate 75 MG TAB PO SCH (12:20)
--- NOTE | 2019-08-12 13:28 | SPC ---
Exam: Left upper surgery PICC line placement with ultrasound guidance HISTORY: Infection. Meningitis. Exposure: 0.2 minutes, 659 mg/sq cm FINDINGS: Successful left upper extremity PICC line placement with ultrasound guidance. A single-lume n 5 Panamanian catheter terminates in the right atrium. 50 cm trim length TECHNIQUE: Consent obtained performing left upper cavity PICC line with ultrasound guidance. Left arm was prepped and draped in a sterile fashion. 1% lidocaine, buffered with sodium bicarbonate was used for local anesthesia. Under ultrasound guidance, micropuncture needle was used to cannulate the basilic vein. A 0.018 guidewire was advanced through the needle to the level of the right atrium. Tract dilatation was performed. Single lumen 5 Panamanian catheter was advanced over the wire. Wire was r emoved. Catheter does flush and aspirate without difficulty. 50 cm. IMPRESSION: Successful left upper surgery PICC line placement with ultrasound guidance.
[2019-08-12] MEDS: Escitalopram Oxalate 10 mg Tablet PO SCH (20:40)
[2019-08-12] MEDS ORDERED: Haloperidol Lactate 5 MG/ML VIAL SLOW IVP SCH (22:00)
[2019-08-13] MEDS: oxyCODONE/Acetaminophen 5 mg/325 mg Tablet PO SCH ×5 (01:11→13:34)
[2019-08-13] MEDS: Meropenem 2 GM, Admixture Fee 1 EACH in Sodium Chloride 0.9% 100 ML IVPB SCH ×2 (02:16→10:41)
[2019-08-13] MEDS: Vancomycin 1 GM in Premix Bag 1 BAG IVPB SCH ×2 (03:54→11:30)
[2019-08-13] MEDS ORDERED: Haloperidol Lactate 5 MG/ML VIAL SLOW IVP SCH (05:38)
[2019-08-13 06:01] LABS: #Lymphocytes 2.4 thou/uL (1.20-3.40); #Monocytes 1.2 thou/uL (0.11-0.59); #Neutrophils 6.9 thou/uL (1.40-6.50); %Basophils 0.2 % (0.0-1.0); %Eosinophils 0.1 % (0.0-10.0); %Lymphocytes 22.5 % (21.0-51.0); %Monocytes 11.5 % (0.0-10.0); %Neutrophils 65.7 % (42.0-75.0); Hemoglobin 12.1 g/dL (14.0-18.0); Mean Corpuscular HGB CONC 31.9 g/dL (32.0-36.0); Mean Corpuscular Volume 90.9 fL (78.0-98.0); Mean Platelet Volume 7.5 fL (7.4-10.4); Platelet Count 235 thou/uL (130-400); RBC Distribution Width 18.5 % (11.5-14.5); Red Blood Cell (RBC) Count 4.16 mill/uL (4.70-6.10); White Blood Cell (WBC) Count 10.5 thou/uL (4.8-10.8)
[2019-08-13 06:33] LABS: Anion Gap 11 mmol/L (10-20); BUN (Urea Nitrogen) 15 mg/dL (8.4-25.7); Calc. Creatinine Clearance 87 mL/min (70-130); Calcium 8.8 mg/dL (7.8-10.44); Carbon Dioxide 26 mmol/L (23-31); Chloride 100 mmol/L (98-107); Estimated GFR-MDRD Greater than 90; Glucose 102 mg/dL (83-110); Sodium 134 mmol/L (136-145)
[2019-08-13 06:40] LABS: Potassium 2.9 mmol/L (3.5-5.1)
[2019-08-13] MEDS ORDERED: Potassium Chloride 20 MEQ TAB PO SCH ×2 (07:00→10:45)
[2019-08-13 07:20] VITALS: BP 146/71; TEMP 98.1
[2019-08-13] MEDS: Mometasone 200 MCG/Formoterol 5 MCG 120 PUFF INHALER INH SCH (07:22)
--- NOTE | 2019-08-13 07:56 | PDOC.FM ---
- Subjective Subjective: Pt became agitated, combative, and restless overnight. Received haldol. Daughter in room this morning with pt who is resting. Notes that pt is adamant about returning home today. Discussed need for PICC line being replaced as pt pulled his other one out last night. Outpt abx also need to be arranged. She expressed understanding. - Objective Vital Signs & Weight: Vital Signs (12 hours) Temp Pulse Resp BP Pulse Ox 08/13/19 07:22 80 16 97 08/13/19 07:16 98.1 F 67 18 146/71 H 96 08/13/19 04:55 94 L 08/13/19 04:00 98.5 F 75 18 146/74 H 96 08/13/19 00:00 98.7 F 75 18 170/88 H 94 L 08/12/19 20:50 96 08/12/19 20:35 98.7 F 76 18 163/75 H 96 Weight Admit Weight 68.13 kg Weight 68.13 kg I&O: 08/12/19 08/13/19 08/14/19 06:59 06:59 06:59 Intake Total 1969.5 950 Output Total 1400 925 Balance 569.5 25 Result Diagrams: 08/13/19 05:51 08/13/19 05:51 Phys Exam - Physical Examination Constitutional: NAD resting HEENT: moist MMs No respiratory distress rrr by pulse Musculoskeletal: no edema Dx/Plan - Plan Plan: Bacterial Meningitis (Encephalopathy improved) - Currently on meropenem, vanc - Cultures negative - likely 2/2 abx tx prior to sample taken - ID, Dr. Scott consulting - awaiting recs for dose/duration - Daughter to set up outpt abx with clinic, assistance - PICC line re-ordered for today Delirium/Encephalopathy - Possible sundowning vs hospital induced delirium last night - Agitated, combative, and pulled out lines - Received haldol - Continue frequent orientation, sleep only at night, familiar personnel in room Chronic opioid use - Pt takes 90mg oral morphine equivalents daily at home - Discussed pain management with Dr. Darling and following recs HTN - metoprolol succ 100mg, amlodipine 5mg - Fairly well controlled, likely elevated with agitation at times HLD - pt is on injectable rx, will hold currently GERD - Home PPI Hx of CAD w/ Triple CABG - Will plan to resume home rx when known Code: Full - per MPOA IVF: LR @ 125 VTE: SCD Diet: NPO pending dysphagia screen Dispo: Medical floor inpt. Arranging outpt abx, continue meningitis tx, frequent orientation for delirium. Hopeful for DC today once outpt regimen is in place and PICC line. Addendum - Attending - Attending Attestation Date/Time: 08/13/19 [id number] I personally evaluated the patient and discussed the management with Dr. Cason I agree with the History, Examination, Assessment and Plan documented above with any addition or exceptions noted below- Patient awake and alert. Denies any complaints. Tolerating diet. Afebrile VSS. A/P: 1) CSF leak associated meningitis - improving. Will need 10 additional days of IV antibiotics- Meropenem 2 grams IV q8 hours. Home health nursing home services needed for infusion therapy. 2) Encephalopathy secondary to meningitis- resolved. 3) Chronic back pain - medications adjusted as per Dr. Yeimy Darling. Continue current medications.
[2019-08-13] MEDS: Cyanocobalamin (Vitamin B-12) 1,000 MCG TAB PO SCH (08:45)
[2019-08-13] MEDS: Amlodipine 5 MG TAB PO SCH (08:45)
[2019-08-13] MEDS: Clopidogrel Bisulfate 75 MG TAB PO SCH (08:45)
[2019-08-13 10:52] LABS: Vancomycin, Trough 27.7 ug/mL
[2019-08-13] MEDS ORDERED: Vancomycin HCl 750 MG in Sodium Chloride 0.9% 250 ML 250 ML IVPB SCH (12:00)
--- NOTE | 2019-08-13 13:43 | SPC ---
PICC PLACEMENT ULTRASOUND-GUIDED VENOUS ACCESS: (Peripherally inserted central catheter) DATE: 08/13/2019 HISTORY: 73-year-old male requiring long-term IV antibiotics. Patient had PICC placed yesterday, which she pulled out TECHNIQUE: Catheter caliber: 5 Japanese Catheter trim length:53.5 cm Catheter lumen number:single Catheter tip location:Superior vena cava/right atrial junction. Vein accessed:left basilic Total fluoroscopy time: 0.5 min. Dose area product: 1360 mGy*cm^2 Signed, informed consent was obtained. A tourniquet was applied at the proximal aspect of the arm. Th e arm was prepped and draped in the usual sterile fashion. A 25-gauge needle was used to applied buffered lidocaine superficially. The vein was punctured with a 21-gauge micropuncture needle under u ltrasound guidance. A 0.018 inch guidewire was advanced through the micropuncture needle and into the vein. Under fluoroscopic guidance, the guidewire was advanced to the superior vena cava. The PICC was flushed and trimmed to the appropriate length. The micropuncture needle was exchanged over the guidewire for a 5 Japanese peel-away dilator sheath. The dilator was exchanged over the guidewire for t he PICC, which was then further advanced under fluoroscopy. The sheath and guidewire were removed. The PICC was flushed again and secured in place at the arm after adjustment of tip position. The balbir ent tolerated the procedure well. There was no complication. IMPRESSION: Successful placement of PICC (peripherally inserted central catheter).
--- NOTE | 2019-08-13 16:26 | PDOC.EVN ---
Event Note - Event Note Event Note: 73 yo male with chronic back pain, COPD, GERD who presented with altered mental status found to have 1) CSF leak associated meningitis - improving. Will need 10 additional days of IV antibiotics- Meropenem 2 grams IV q8 hours. [facility] health jail [facility] needed for infusion therapy. 2) Encephalopathy secondary to meningitis- resolved. 3) Chronic back pain - medications adjusted as per Dr. Yeimy Darling. Continue current medications. Patient is homebound due to his chronic medical conditions and requires home health services for this reason.
--- NOTE | 2019-08-14 13:03 | EKG ---
Test Reason : Blood Pressure : / mmHG Vent. Rate : 099 BPM Atrial Rate : 099 BPM P-R Int : 154 ms QRS Dur : 080 ms QT Int : 358 ms P-R-T Axes : 040 006 -59 degrees QTc Int : 459 ms Normal sinus rhythm Moderate voltage criteria for LVH, may be normal variant Inferior infarct , age undetermined Abnormal ECG Confirmed by RODRIGUE LEE DO ([id number]), technical writer and editor SAMMY GUTIERREZ ([id number]) on 08/14/2019 1:03:07 PM Referred By: Confirmed By:RODRIGUE LEE DO
--- NOTE | 2019-08-15 23:43 | PQF ---
KAVITA DIEZ ANNA MD [id number] [facility] [place]-218 [id number] CLINICAL DOCUMENTATION CLARIFICATION FORM: POST DISCHARGE Addendum to original discharge summary date: ____ Late entry note date: __ DATE: 08/15/2019 ATTN: Simi Maxwell Please exercise your independent, professional judgment in responding to the clarification form. Clinical indicators are provided on the bottom of this form for your review Please check appropriate box(s): [ ] Protein Calorie Malnutrition: [ ] Mild [ ] Moderate [ ] Severe [ ] Other Malnutrition (please specify) __ [ ] Underweight without malnutrition [ ] Cachexia [ ] Other diagnosis [ ] Unable to determine In addition, please specify: Present on Admission (POA): [ ] Yes [ ] No [ ] Unable to determine CLINICAL INDICATORS - SIGNS / SYMPTOMS / LABS Vital signs 08/08 168/84, Pulse 98, Resp 22, Temp 98.7 Nutritional assessment 08/09 BMI 20.9 Nutritional assessment 08/09 Weight loss Nutritional assessment 08/09 Cachexia Laboratory 08/08 Serum Total protein 8.9, Albumin 4.3, Globulin 4.6, Ratio 0.9 RISK FACTORS H&P p1 08/08 73 year-old Male H&P p1 08/08 CAD H&P p1 08/08 hx of gastric cancer H&P p1 08/08 Chronic back pain H&P p2 08/08 COPD H&P p2 08/08 Smoker H&P p5 08/08 HTN Consult p3 08/09 - Bacterial Meningitis TREATMENT: Nutritional assessment 08/09 Dietary consult Nutritional assessment 08/09 Nutritional supplements Nutritional assessment 08/09 Appetite stimulant Nutritional assessment 08/09 Monitor weight Nutritional assessment 08/09 Monitor intake Moderate Malnutrition (in acute illness) Energy Intake: <75% of estimated energy requirement for > 7 days Weight Loss: 1-2%/1 week; 5%/ 1 month; 7.5%/3 months Other: mild body fat loss; mild muscle mass loss; mild fluid accumulation; Severe Malnutrition (in acute illness) Energy Intake: < 50% of estimated energy requirement for > 5 days Weight Loss: >1-2%/1 week; >5%/1 month; >7.5%/3 months Other: moderate body fat loss; moderate muscle mass loss; moderate- severe fluid accumulation; measurably reduced paper feeder strength Moderate Malnutrition (in chronic illness) Energy Intake: <75% of estimated energy requirement for >1 month Weight Loss: 5%/1 month; 7.5%/3 months; 10%/6 months; 20%/1 year Other: mild body fat loss; mild muscle mass loss; mild fluid accumulation Severe Malnutrition (in chronic illness) Energy Intake: <75% of estimated energy requirement for >1 month Weight Loss: >5%/1 month; >7.5%/3 months; >10%/6 months; >20%/1 year Other: severe body fat loss; severe muscle mass loss; severe fluid accumulation ; measurably reduced paper feeder strength (This form is maintained as a part of the permanent medical record) 2014 [employer]. All Rights Reserved [email or web address]
--- NOTE | 2019-08-15 23:44 | PQF ---
KAVITA DIEZ ANNA MD [id number] [facility] [place]-218 [id number] CLINICAL DOCUMENTATION CLARIFICATION FORM: POST DISCHARGE Addendum to original discharge summary date: ____ Late entry note date: __ DATE: 08/15/2019 ATTN: Simi Maxwell Please exercise your independent, professional judgment in responding to the clarification form. Clinical indicators are provided on the bottom of this form for your review Please check appropriate box(s): Encephalopathy: Etiology: [ ] Metabolic [ ] Toxic [ ] Septic [ ] Other (please specify): [ ] Unable to determine For continuity of documentation, please document condition throughout progress notes and discharge summary. Thank You. CLINICAL INDICATORS - SIGNS / SYMPTOMS / LABS Laboratory 08/08 WBC 19.6, Plt count 300, Neutrophils 87.9, Lymphocysts 6.8, Lactic acid 1.9 Blood culture 08/08 No growth after 48 hours Vital signs 08/08 168/84, Pulse 98, Resp 22, Temp 98.7 ED notes p2 SIRS Scoring: yes pt did meet the sepsis criteria H&P p1 08/08 Dr Cason Complaints of AMS and Aphasia H&P p5 08/08 Dr Cason Encephalopathy -AMS, presubly 2/2 to Meningitis Consult p3 08/09 Dr Darling Bacterial Meningitis, this could be a complication of a dural leak RISK FACTORS H&P p1 08/08 73 year-old Male H&P p1 08/08 CAD H&P p1 08/08 hx of gastric cancer H&P p1 08/08 Chronic back pain H&P p2 08/08 COPD H&P p2 08/08 Smoker H&P p5 08/08 HTN Consult p3 08/09 - Bacterial Meningitis TREATMENTS: MAR 08/08 IV Ampicillin Sodium 2 gm MAR 08/08 IV Rocephin 2 gm MAR 08/08 IV Dexamethasone Sodium Phosphate 10 mg MAR 08/08 IV Lactated Ringer's 1L MAR 6/15 IV Vancomycin 1.5 APR 29 IV Meropenem 2 gm Blood culture ordered 08/08 Sepsis Protocol ordered 08/08 Lumbar puncture diagnosis 08/08 Dr Hendricks ID consult 08/08 -Dr. Scott (This form is maintained as a part of the permanent medical record) 2014 [employer]. All Rights Reserved [email or web address] E[facility] TH[facility]AT HOSPITALSara
--- NOTE | 2019-08-15 23:46 | PQF ---
KAVITA DIEZ ANNA MD [id number] [facility] [place]-218 [id number] CLINICAL DOCUMENTATION CLARIFICATION FORM: POST DISCHARGE Addendum to original discharge summary date: ____ Late entry note date: __ DATE: 08/15/2019 ATTN: Simi Maxwell Please exercise your independent, professional judgment in responding to the clarification form. Clinical indicators are provided on the bottom of this form for your review Please check appropriate box(es): [ ] Sepsis due to Bacterial Meningitis from Dural leak complication [ ] Localized infection without sepsis [ ] Other diagnosis [ ] Unable to determine For continuity of documentation, please document condition throughout progress notes and discharge summary. Thank You. CLINICAL INDICATORS - SIGNS / SYMPTOMS / LABS Laboratory 08/08 WBC 19.6, Plt count 300, Neutrophils 87.9, Lymphocysts 6.8, Lactic acid 1.9 Blood culture 08/08 No growth after 48 hours Vital signs 08/08 168/84, Pulse 98, Resp 22, Temp 98.7 ED notes p2 SIRS Scoring: yes pt did meet the sepsis criteria H&P p1 08/08 Dr Cason Complaints of AMS and Aphasia H&P p5 08/08 Dr Cason Encephalopathy -AMS, presumedly 2/2 to Meningitis Consult p3 08/09 Dr Darling Bacterial Meningitis, this could be a complication of a dural leak RISK FACTORS H&P p1 08/08 73 year-old Male H&P p1 08/08 CAD H&P p1 08/08 hx of gastric cancer H&P p1 08/08 Chronic back pain H&P p2 08/08 COPD H&P p2 08/08 Smoker H&P p5 08/08 HTN Consult p3 08/09 - Bacterial Meningitis TREATMENTS: MAR 08/08 IV Ampicillin Sodium 2 gm MAR 08/08 IV Rocephin 2 gm MAR 08/08 IV Dexamethasone Sodium Phosphate 10 mg MAR 08/08 IV Lactated Ringer's 1L MAR 6/15 IV Vancomycin 1.5 APR 29 IV Meropenem 2 gm Blood culture ordered 08/08 Sepsis Protocol ordered 08/08 Lumbar puncture diagnosis 08/08 Dr Hendricks ID consult (This form is maintained as a part of the permanent medical record) 2014 [employer]. All Rights Reserved [email or web address]
--- NOTE | 2019-08-16 11:05 | DIS ---
DATE OF ADMISSION: 08/09/2019 DATE OF DISCHARGE: 08/13/2019 ADMITTING ATTENDING: Catherine Hutchins MD DISCHARGE ATTENDING: Catherine Hutchins MD RESIDENT: Juan Diego Cason DO. CONSULTS: 1. Infectious Disease, Dr. Gordy Scott. 2. Pain Management, Dr. Yeimy Darling. 3. Palliative care, Ms. Boone Leola, CAMP COUNSELOR. PROCEDURES: 1. Interventional Radiology lumbar puncture under fluoroscopy on 08/09/2019; impression, successful lumbar puncture with removal of 15 mL of cloudy appearing CSF fluid. 2. PICC line placement, 08/12/2019; impression, successful left upper surgery, PICC line placement with ultrasound guidance. 3. PICC line placement, 08/13/2019, impression, successful placement of PICC line successfully placed under ultrasound guidance. IMAGIN. Chest x-ray, 08/09/2019; impression, no acute process. 2. Brain CT, 08/09/2019; impression, stable exam. No CT evidence of acute intracranial process. 3. Brain MRI, 08/09/2019; impression, no evidence of acute intracranial process. PRIMARY DIAGNOSES: 1. Bacterial meningitis secondary to postoperative infection. 2. Encephalopathy. 3. Chronic back pain. SECONDARY DIAGNOSES: 1. Hypertension. 2. Hyperlipidemia. 3. History of coronary artery bypass grafting in the setting of coronary artery disease, systolic heart failure. DISCHARGE MEDICATIONS: 1. Lexapro 10 mg daily. 2. Hydrocodone 10/325 one to two tabs b.i.d. 3. Praluent Pen 150 mg subcu q.Mondays. 4. Ezetimibe 10 mg at bedtime. 5. Trazodone 100 mg at bedtime. 6. Vitamin B12, 1000 mcg daily. 7. Protonix 40 mg daily. 8. Norvasc 5 mg daily. 9. Meropenem 2 g t.i.d. x10 days. 10. Metoprolol succinate 100 mg daily. HISTORY OF PRESENT ILLNESS AND HOSPITAL COURSE: This is a 73-year-old male with past medical history of coronary artery disease, gastric cancer in the setting of recent gastrectomy, chronic back pain, recent inguinal hernia repair, and concurrent intrathecal pump removal, who presented to the emergency department with complaint of altered mental status and aphasia. Approximately 5 days prior to arrival, the patient had inguinal hernia repair by Dr. Park and intraoperatively while he was under anesthesia, Dr. Park also removed his intrathecal pain pump under the request of the patient's pain management doctor, Dr. Darling. Subsequent day, the patient was readmitted for a spinal headache, but was discharged same day with followup precautions. Daughter stated that over the weekend, the patient started to become intermittently altered; however, starting midnight prior to arrival, the patient developed severe headache and back pain with worsening altered mental status. The patient went to the ER in the morning, but was discharged with the diagnosis of chronic back pain and opioid overuse. Later in the day, he went to Dr. Darling's office, who saw him in his vehicle and noted him to be aphasic and unable to ambulate, so he sent him to emergency department for workup for possible stroke. In the ER, the patient continued to be aphasic and altered to the point that he could not follow any commands. In the setting of the patient's recent operation of intrathecal pain pump removal and new onset headache, Dr. Wyatt in the ER empirically treated the patient for bacterial meningitis with intravenous vancomycin and Rocephin. Due to the patient's multiple back surgeries, he elected not to perform an LP himself. Interventional Radiology was contacted and agreed to perform a lumbar puncture. Fluid analysis of the LP was significant for a cloudy turbid appearance with 87% segmented neutrophils with a 7000 total nucleated cell count , total protein of 764, glucose of 41. In the setting of these findings, the patient was subsequently diagnosed with bacterial meningitis and admitted to the hospital. Dr. Scott with Infectious Disease was consulted due to the patient's postoperative history and need for outpatient antibiotics post discharge. The patient was subsequently started on IV meropenem and vancomycin. His cultures came back sterile, likely due to the empiric treatment of his infection prior to lumbar puncture. At the time of discharge, the patient was lucid and had near complete resolution of his encephalopathy. Daughter stated that he continued to have some mild confusion with history and making odd statements, but was otherwise at his baseline. Dr. Darling, the patient's pain management doctor was consulted throughout his stay as well and gave recommendations for pain management while in the hospital. The patient had a PICC line placed prior to discharge, but had gotten confused and altered the night prior to leaving and pulled it out. PICC line and peripheral IVs were replaced the next day prior to discharge. The daughter agreed to accompany the patient home and care for him while he was receiving IV antibiotics, along with the help of home health. DISCHARGE INSTRUCTIONS: 1. Location: Home. 2. Diet: Heart healthy. 3. Activity: As tolerated. 4. Follow up: PCP within 7 days. Job ID: [id number] MTDD
== END 2019-08-13 16:48 | disposition home health service (06) | DRG 91 ==
LOC: ERS 13:06 → OBSVTOIN 15:31 → 2SE 15:31 → INTOOBSV 15:31 → T4-A 08-12 16:13
PROVIDERS: ADMIT Family Medicine; ATTEND Family Medicine
PROC: 009U3ZX Drainage of Spinal Canal, Percutaneous Approach, Diagnostic (ICD-10-PCS; principal; 2019-08-09)
PROC: B01BZZZ Fluoroscopy of Spinal Cord (ICD-10-PCS; 2019-08-09)
PROC: 02H633Z Insertion of Infusion Device into Right Atrium, Percutaneous Approach (ICD-10-PCS; 2019-08-12)
PROC: B548ZZA Ultrasonography of Superior Vena Cava, Guidance (ICD-10-PCS; 2019-08-12)
PROC: 02HV33Z Insertion of Infusion Device into Superior Vena Cava, Percutaneous Approach (ICD-10-PCS; 2019-08-13)
PROC: B518ZZA Fluoroscopy of Superior Vena Cava, Guidance (ICD-10-PCS; 2019-08-13)
PROC: B548ZZA Ultrasonography of Superior Vena Cava, Guidance (ICD-10-PCS; 2019-08-13)
DX: G97.82 Other postprocedural complications and disorders of nervous system (principal); G00.9 Bacterial meningitis, unspecified; R64 Cachexia; G96.0 Cerebrospinal fluid leak; G93.49 Other encephalopathy; I50.22 Chronic systolic (congestive) heart failure; I47.1 Supraventricular tachycardia; I25.10 Atherosclerotic heart disease of native coronary artery without angina pectoris; G89.29 Other chronic pain; J44.9 Chronic obstructive pulmonary disease, unspecified; K21.9 Gastro-esophageal reflux disease without esophagitis; G47.00 Insomnia, unspecified; F17.210 Nicotine dependence, cigarettes, uncomplicated; E78.5 Hyperlipidemia, unspecified; F32.9 Major depressive disorder, single episode, unspecified; H91.90 Unspecified hearing loss, unspecified ear; M54.5 Low back pain; E78.00 Pure hypercholesterolemia, unspecified; Y83.8 Other surgical procedures as the cause of abnormal reaction of the patient, or of later complication, without mention of misadventure at the time of the procedure; I11.0 Hypertensive heart disease with heart failure; Z88.1 Allergy status to other antibiotic agents; Z88.2 Allergy status to sulfonamides; Z88.8 Allergy status to other drugs, medicaments and biological substances; Z79.899 Other long term (current) drug therapy; Z79.02 Long term (current) use of antithrombotics/antiplatelets; Z79.51 Long term (current) use of inhaled steroids; Z95.1 Presence of aortocoronary bypass graft; Z90.49 Acquired absence of other specified parts of digestive tract; Z68.20 Body mass index [BMI] 20.0-20.9, adult; Z85.028 Personal history of other malignant neoplasm of stomach; Z98.1 Arthrodesis status
CPT/HCPCS: 36415; 36569; 51701; 62270; 70450; 70551; 71045; 80048; 80053; 80202; 80306; 81003; 82945; 83605; 83735; 84145; 84157; 85025; 85060; 85610; 85730; 86140; 87040; 87070; 87086; 87205; 89051; 93005; 96361; 96365; 96366; 96374; 96375; 96376; C1751; C1781; G0378; J0290; J0360; J0690; J0696; J1100; J1170; J1630; J1644; J1885; J2185; J2270; J2370; J2405; J2704; J2765; J3010; J3370; J3490; J7050; S0020; S0028

== ENCOUNTER 2019-11-15 23:55 | Emergency (ER) | payer MEDICARE, BC ==
[2019-11-16 00:33] LABS: Hemoglobin 12.4 g/dL (14.0-18.0); Mean Corpuscular HGB CONC 33.6 g/dL (32.0-36.0); Mean Corpuscular Hemoglobin 34.3 pg (27.0-31.0); Red Blood Cell (RBC) Count 3.62 mill/uL (4.70-6.10); White Blood Cell (WBC) Count 13.7 thou/uL (4.8-10.8)
[2019-11-16 00:44] LABS: #Eosinphils 0.2 thou/uL (0.0-0.7); #Lymphocytes 1.6 thou/uL (1.20-3.40); #Monocytes 0.8 thou/uL (0.11-0.59); #Neutrophils 11.2 thou/uL (1.40-6.50); %Basophils 0.1 % (0.0-1.0); %Eosinophils 1.1 % (0.0-10.0); %Lymphocytes 11.6 % (21.0-51.0); %Monocytes 5.7 % (0.0-10.0); %Neutrophils 81.6 % (42.0-75.0); ALT (SGPT) 17 U/L (8-55); AST (SGOT) 19 U/L (5-34); Albumin 3.5 g/dL (3.4-4.8); Alkaline Phosphatase 64 U/L (40-110); Anion Gap 13 mmol/L (10-20); BUN (Urea Nitrogen) 22 mg/dL (8.4-25.7); Bilirubin, Total 0.4 mg/dL (0.2-1.2); Calc. Creatinine Clearance 0 mL/min (70-130); Calcium 8.7 mg/dL (7.8-10.44); Carbon Dioxide 20 mmol/L (23-31); Chloride 105 mmol/L (98-107); Estimated GFR-MDRD 75; Globulin 3.3 g/dL (2.4-3.5); Glucose 120 mg/dL (83-110); Mean Platelet Volume 8.4 fL (7.4-10.4); Platelet Count 119 thou/uL (130-400); Platelet Morphology Comment Appears Decreased; Potassium 4.6 mmol/L (3.5-5.1); Protein, Total 6.8 g/dL (5.8-8.1); Sodium 133 mmol/L (136-145)
[2019-11-16 01:32] LABS: Bilirubin Negative (Negative); Blood, Urine Negative (Negative); Clarity Clear (Clear); Glucose, Urine (Dipstick) Normal (Negative); Ketone, Urine Negative (Negative); Leukocyte Negative Leu/uL (Negative); Nitrite Negative (Negative); Protein, Urine (Dipstick) Negative (Neg-Trace); Specific Gravity, Urine 1.021 (1.002-1.036); Urobilinogen Normal mg/dL (Less than 2); pH, Urine 5.5 (5.0-9.0)
--- NOTE | 2019-11-16 07:39 | CT ---
PRELIMINARY REPORT/[facility]/EMERGENCY AFTER HOURS PROCEDURE EXAM: CT Head and Cervical Spine Without IV contrast. CLINICAL HISTORY: FALL YESTERDAY, SLEPT ALL DAY TODAY. ALTERED, SLOW TO RESPOND. FRONTAL CLAUDIO, PAIN TO R ARM TECHNIQUE: Axial computed tomography images were acquired of the head and the cervical spine without intravenous contrast. Sagittal and coronal reformatted images were obtained of the cervical spine. COMPARISON: None provided. FINDINGS: BRAIN: No acute intraparenchymal hemorrhage. No mass lesion. No CT evidence for acute territorial infarct. N o midline shift or extra-axial collection. Mild generalized cerebral atrophy. Subcortical and periventricular matter change likely related to chronic ischemic small vessel disease. Arteriosclero sis. VENTRICLES No hydrocephalus. ORBITS The orbits are unremarkable. SINUSES AND MASTOIDS The paranasal sinuses and mastoid air cells are clear. SOFT TISSUES No significant facial or scalp soft tissue swelling evident. No radiopaque foreign body is seen. Ath erosclerosis of the bilateral carotid bifurcations. Centrilobular emphysematous changes. BONES No acute osseous pathology evident. Osteopenia. No acute fracture is evident on images of the head or cervical spine. DISKS/DEGENERATIVE CHANGES Multilevel mild to moderate degenerative disc disease throughout the cervical spine. Multilevel face t spondylosis. Severe right-sided foraminal stenosis at C2-C3. Severe right and moderate left foraminal stenosis at C3-C4. Severe right-sided foraminal stenosis at C4-C5. Severe bilateral femoral stenosis at C5-C6 and C6-C7. Posterior cervical spine vertebral body alignment is within normal limits. IMPRESSION: 1. No acute intracranial findings. No acute intracranial injury evident. 2. No cervical spine fracture evident. ELECTRONICALLY SIGNED BY: Joseph Gomes MD Nov 16, 2019 12:34:57 AM CDT This report is intended for review by the ordering physician only, in accordance of law. If you recei ve this report in error, please call [facility] at [phone]. FINAL REPORT EMERGENT AFTER HOURS NONCONTRAST CT HEAD: HISTORY: Altered mental status post fall. Frontal headache. COMPARISON: 08/09/2019. IMPRESSION: 1. No acute intracranial abnormality demonstrated. 2. Stable chronic changes. 3. Findings are in agreement with preliminary report by [facility]. Transcribed Date/Time: 11/16/2019 7:46 AM
--- NOTE | 2019-11-16 07:42 | CT ---
PRELIMINARY REPORT/[facility]/EMERGENCY AFTER HOURS PROCEDURE EXAM: CT Head and Cervical Spine Without IV contrast. CLINICAL HISTORY: FALL YESTERDAY, SLEPT ALL DAY TODAY. ALTERED, SLOW TO RESPOND. FRONTAL CLAUDIO, PAIN TO R ARM TECHNIQUE: Axial computed tomography images were acquired of the head and the cervical spine without intravenous contrast. Sagittal and coronal reformatted images were obtained of the cervical spine. COMPARISON: None provided. FINDINGS: BRAIN: No acute intraparenchymal hemorrhage. No mass lesion. No CT evidence for acute territorial infarct. N o midline shift or extra-axial collection. Mild generalized cerebral atrophy. Subcortical and periventricular matter change likely related to chronic ischemic small vessel disease. Arteriosclero sis. VENTRICLES No hydrocephalus. ORBITS The orbits are unremarkable. SINUSES AND MASTOIDS The paranasal sinuses and mastoid air cells are clear. SOFT TISSUES No significant facial or scalp soft tissue swelling evident. No radiopaque foreign body is seen. Ath erosclerosis of the bilateral carotid bifurcations. Centrilobular emphysematous changes. BONES No acute osseous pathology evident. Osteopenia. No acute fracture is evident on images of the head or cervical spine. DISKS/DEGENERATIVE CHANGES Multilevel mild to moderate degenerative disc disease throughout the cervical spine. Multilevel face t spondylosis. Severe right-sided foraminal stenosis at C2-C3. Severe right and moderate left foraminal stenosis at C3-C4. Severe right-sided foraminal stenosis at C4-C5. Severe bilateral femoral stenosis at C5-C6 and C6-C7. Posterior cervical spine vertebral body alignment is within normal limits. IMPRESSION: 1. No acute intracranial findings. No acute intracranial injury evident. 2. No cervical spine fracture evident. ELECTRONICALLY SIGNED BY: Joseph Gomes MD Nov 16, 2019 12:34:57 AM CDT This report is intended for review by the ordering physician only, in accordance of law. If you recei ve this report in error, please call [facility] at [phone]. FINAL REPORT Exam: CT cervical spine without contrast HISTORY: Trauma. Pain. Patient fell yesterday. COMPARISON: 07/20/2013 FINDINGS: No craniocervical dissociation. Appropriate alignment of the lateral masses of C1 and C2. Intact odon toid process Appropriate alignment of the facets. Persistent grade 1 anterolisthesis of C4 upon C5. Findings are presumed to be chronic and secondary t o facet arthropathy. Soft tissue neck structures: No mass, lymphadenopathy or hematoma. No prevertebral soft tissue swelli ng. Upper mediastinum and lung apices: Unremarkable Central spinal canal: Severe loss of disc space height at C5-C6. Moderate loss of disc space height a t C6-C7. There are varying degrees of central canal stenosis and foraminal narrowing on the basis of degenerative change. Asymmetric right facet hypertrophy at C2-C3, C3-C4 and C4-C5. Vertebral bodies: Cervical spine vertebral body height is maintained. No fracture. IMPRESSION: 1. This report is in agreement with initial report by [facility] 2. No fracture. Transcribed Date/Time: 11/16/2019 7:47 AM
--- NOTE | 2019-11-16 08:00 | RAD ---
RADIOGRAPH RIGHT HAND 3 VIEWS: HISTORY: A 74-YEAR-OLD MALE WITH ACUTE TRAUMATIC RIGHT HAND PAIN DUE TO FALL. FINDINGS: No dislocation. No acute fracture identified. IMPRESSION: No acute fracture identified. POS: JIN
--- NOTE | 2019-11-16 08:06 | RAD ---
XR Wrist 3 Rt View STANDARD: 11/16/2019 12:28 AM CLINICAL INDICATION: Fall with right wrist pain COMPARISON: None. FINDINGS: Bones: No definite acute fracture is demonstrated. There is a chronic ununited fracture involving th e ulnar styloid process. There is an incompletely healed chronic appearing transverse oriented fracture involving the distal radius. There is a chronic appearing mild avulsion fracture involving t he dorsal triquetrum. There is moderate STT and mild first CMC osteoarthrosis. There is instrumented deformity involving the distal ulnar shaft. There is some defects involving the lateral aspect of the distal radial shaft which may reflect sequela of prior trauma or surgery. Joints: Carpal alignment appears within normal limits. There is mild first CMC and moderate STT osteo arthrosis.. Soft Tissue: Normal.. IMPRESSION: No definite acute fracture or subluxation. Incompletely healed the distal radial metaphyseal fracture. Remote appearing ununited fractures invol ving the ulnar styloid process and dorsal triquetrum. Healed instrumented distal ulnar shaft fracture..
== END 2019-11-16 03:25 | disposition home or self-care (01) ==
LOC: ERS 23:55
DX: S00.83XA Contusion of other part of head, initial encounter (principal); S50.01XA Contusion of right elbow, initial encounter; J44.9 Chronic obstructive pulmonary disease, unspecified; I10 Essential (primary) hypertension; I25.10 Atherosclerotic heart disease of native coronary artery without angina pectoris; F32.9 Major depressive disorder, single episode, unspecified; F17.210 Nicotine dependence, cigarettes, uncomplicated; Z79.899 Other long term (current) drug therapy; W19.XXXA Unspecified fall, initial encounter
CPT/HCPCS: 36416; 70450; 72125; 80053; 81003; 85025; 93005

== ENCOUNTER 2020-04-26 14:20 | Outpatient (CLI) | payer MEDICARE, BC ==
[2020-04-26 15:34] LABS: #Eosinphils 0.1 10x3/uL (0.0-0.5); #Neutrophils 4.7 10x3/uL (1.5-8.4); %Basophils 0.5 % (0.0-2.0); %Eosinophils 0.8 % (0.0-6.0); %Lymphocytes 34.4 % (18.0-47.0); %Monocytes 11.1 % (0.0-10.0); %Neutrophils 52.9 % (40.0-75.0); Hemoglobin 12.9 g/dL (13.5-17.5); Mean Corpuscular HGB CONC 32.7 g/dL (32.0-36.0); Mean Corpuscular Hemoglobin 33.2 pg (27.0-33.0); Mean Corpuscular Volume 101.5 fl (81.2-95.1); Platelet Count 170 10x3/uL (150-450); RBC Distribution Width 14.1 % (11.5-14.5); Red Blood Cell (RBC) Count 3.89 10x6/uL (4.32-5.72); White Blood Cell (WBC) Count 8.8 10x3/uL (3.5-10.5)
[2020-04-26 15:42] LABS: ALT (SGPT) 13 U/L (8-55); AST (SGOT) 13 U/L (5-34); Albumin 3.7 g/dL (3.4-4.8); Alkaline Phosphatase 74 U/L (40-110); Anion Gap 12 mmol/L (10-20); BUN (Urea Nitrogen) 24 mg/dL (8.4-25.7); Bilirubin, Total 0.3 mg/dL (0.2-1.2); Calc. Creatinine Clearance 0 mL/min (70-130); Calcium 8.9 mg/dL (7.8-10.44); Carbon Dioxide 26 mmol/L (23-31); Chloride 103 mmol/L (98-107); Globulin 3.1 g/dL (2.4-3.5); Glucose 66 mg/dL (83-110); Potassium 4.7 mmol/L (3.5-5.1); Protein, Total 6.8 g/dL (5.8-8.1); Sodium 136 mmol/L (136-145)
[2020-04-27 00:56] LABS: SARS-CoV-2 PCR by NAA Not Detected (NotDetected)
== END 2020-04-26 14:21 | disposition home or self-care (01) ==
LOC: LABBT 14:20
PROVIDERS: ATTEND Surgery
DX: Z01.818 Encounter for other preprocedural examination (principal); Z20.822 Contact with and (suspected) exposure to COVID-19
CPT/HCPCS: 80053; 85025; 87635; 93005; 93010; U0003; U0005

== ENCOUNTER 2020-05-03 06:48 | Day surgery (SDC) | payer MEDICARE, BC ==
[2020-04-27 14:53] VITALS: BMI 22.4
[2020-05-03] MEDS ORDERED: Fentanyl 100 MCG/2 ML VIAL ONE ×3 (08:22→09:53)
[2020-05-03] MEDS ORDERED: Lidocaine 1% w/Epinephrine 1:100K 20 ML VIAL ONE (08:30)
[2020-05-03] MEDS ORDERED: Bupivacaine 0.25% HCL 30 ML VIAL ONE (08:30)
[2020-05-03] MEDS ORDERED: XYLOCAINE 2%-EPI 1:100,000 20 ML VIAL ONE (08:30)
[2020-05-03] MEDS ORDERED: Ondansetron PF 4 MG/2 ML Vial ONE (09:11)
[2020-05-03] MEDS ORDERED: Lidocaine 1% PF 5 ML VIAL ONE (09:11)
[2020-05-03] MEDS ORDERED: Dexamethasone 20 MG/5 ML VIAL ONE (09:11)
[2020-05-03] MEDS ORDERED: ePHEDrine 50 MG/ML VIAL ONE (09:11)
[2020-05-03] MEDS ORDERED: Rocuronium Bromide 10 MG/ML (10ML VIAL) ONE (09:11)
[2020-05-03] MEDS ORDERED: PROPOFOL 200 MG/20 ML VIAL ONE (09:11)
[2020-05-03] MEDS ORDERED: Glycopyrrolate 0.2 MG/ML 5 ML SYRINGE ONE (09:11)
[2020-05-03] MEDS ORDERED: HYDROcodone/Acetaminophen 5/325 mg Tablet ONE (10:37)
== END 2020-05-03 11:18 | disposition home or self-care (01) ==
LOC: SDC 06:48
PROVIDERS: ATTEND Surgery
PROC: 0WUF0JZ Supplement Abdominal Wall with Synthetic Substitute, Open Approach (ICD-10-PCS; principal; 2020-05-03)
DX: K43.9 Ventral hernia without obstruction or gangrene (principal); I10 Essential (primary) hypertension; M10.9 Gout, unspecified; G47.30 Sleep apnea, unspecified; J44.9 Chronic obstructive pulmonary disease, unspecified; K21.9 Gastro-esophageal reflux disease without esophagitis; E78.00 Pure hypercholesterolemia, unspecified; I73.9 Peripheral vascular disease, unspecified; G89.29 Other chronic pain; M54.5 Low back pain; F17.210 Nicotine dependence, cigarettes, uncomplicated; Z79.02 Long term (current) use of antithrombotics/antiplatelets; Z79.82 Long term (current) use of aspirin; Z79.899 Other long term (current) drug therapy; Z88.1 Allergy status to other antibiotic agents; Z88.2 Allergy status to sulfonamides; Z88.8 Allergy status to other drugs, medicaments and biological substances
CPT/HCPCS: C1781; J0690; J1100; J2405; J2704; J3010; J3490; S0020

== ENCOUNTER 2020-05-30 21:06 | Emergency (ER) | payer MEDICARE, BC ==
[2020-05-30] MEDS ORDERED: Morphine 4 MG/ML VIAL ONE ×2 (21:41→23:02)
[2020-05-30] MEDS ORDERED: Ketorolac Tromethamine 30 MG/ML VIAL ONE (21:41)
[2020-05-30 21:45] LABS: #Basophils 0.1 thou/uL (0.0-0.2); #Eosinphils 0.1 thou/uL (0.0-0.7); #Lymphocytes 2.2 thou/uL (1.20-3.40); #Monocytes 0.9 thou/uL (0.11-0.59); #Neutrophils 5.2 thou/uL (1.40-6.50); %Basophils 0.6 % (0.0-1.0); %Eosinophils 1.5 % (0.0-10.0); %Lymphocytes 26.3 % (21.0-51.0); %Monocytes 10.7 % (0.0-10.0); %Neutrophils 60.9 % (42.0-75.0); Hemoglobin 12.1 g/dL (14.0-18.0); Mean Corpuscular HGB CONC 33.2 g/dL (32.0-36.0); Mean Corpuscular Hemoglobin 34.7 pg (27.0-31.0); Mean Platelet Volume 7.2 fL (7.4-10.4); Platelet Count 167 thou/uL (130-400); RBC Distribution Width 12.8 % (11.5-14.5); Red Blood Cell (RBC) Count 3.49 mill/uL (4.70-6.10); White Blood Cell (WBC) Count 8.5 thou/uL (4.8-10.8)
[2020-05-30 22:08] LABS: ALT (SGPT) 11 U/L (8-55); AST (SGOT) 15 U/L (5-34); Albumin 3.1 g/dL (3.4-4.8); Alkaline Phosphatase 69 U/L (40-110); Anion Gap 13 mmol/L (10-20); BUN (Urea Nitrogen) 20 mg/dL (8.4-25.7); Bilirubin, Total Less than 0.2 mg/dL (0.2-1.2); Calc. Creatinine Clearance 0 mL/min (70-130); Calcium 7.8 mg/dL (7.8-10.44); Carbon Dioxide 19 mmol/L (23-31); Chloride 104 mmol/L (98-107); Globulin 3.2 g/dL (2.4-3.5); Glucose 93 mg/dL (83-110); Lipase 67 U/L (8-78); Potassium 4.6 mmol/L (3.5-5.1); Protein, Total 6.3 g/dL (5.8-8.1); Sodium 131 mmol/L (136-145)
[2020-05-30 22:50] LABS: Bilirubin Negative (Negative); Blood, Urine Negative (Negative); Clarity Clear (Clear); Glucose, Urine (Dipstick) Normal (Negative); Ketone, Urine Negative (Negative); Leukocyte Negative Leu/uL (Negative); Nitrite Negative (Negative); Protein, Urine (Dipstick) Negative (Neg-Trace); Specific Gravity, Urine 1.013 (1.002-1.036); Urobilinogen Normal mg/dL (Less than 2); pH, Urine 6.5 (5.0-9.0)
== END 2020-05-30 23:15 | disposition home or self-care (01) ==
LOC: ERS 21:06
DX: S70.02XA Contusion of left hip, initial encounter (principal); S80.02XA Contusion of left knee, initial encounter; M47.812 Spondylosis without myelopathy or radiculopathy, cervical region; M47.814 Spondylosis without myelopathy or radiculopathy, thoracic region; W18.30XA Fall on same level, unspecified, initial encounter; J44.9 Chronic obstructive pulmonary disease, unspecified; I25.2 Old myocardial infarction; I10 Essential (primary) hypertension; I25.10 Atherosclerotic heart disease of native coronary artery without angina pectoris; F17.210 Nicotine dependence, cigarettes, uncomplicated
CPT/HCPCS: 36415; 70450; 71045; 71250; 72125; 80053; 81003; 83605; 83690; 85025; 93005; 96374; 96375; 96376; J1885; J2270

== ENCOUNTER 2020-06-09 09:15 | Inpatient (IN) | payer MEDICARE, BC ==
[2020-06-09] MEDS ORDERED: Metoclopramide 10 MG/10 ML UDCUP ONE (10:20)
[2020-06-09] MEDS ORDERED: diphenhydrAMINE 12.5 MG/5 ML UDCUP ONE (10:20)
[2020-06-09] MEDS ORDERED: Metoclopramide HCl 10 MG/2 ML VIAL ONE (10:21)
[2020-06-09] MEDS ORDERED: diphenhydrAMINE 50 MG/ML VIAL ONE (10:21)
[2020-06-09 10:43] LABS: #Basophils 0.1 thou/uL (0.0-0.2); #Eosinphils 0.1 thou/uL (0.0-0.7); #Lymphocytes 2.3 thou/uL (1.20-3.40); #Monocytes 0.8 thou/uL (0.11-0.59); #Neutrophils 4.1 thou/uL (1.40-6.50); %Eosinophils 1.4 % (0.0-10.0); %Lymphocytes 31.1 % (21.0-51.0); %Monocytes 10.3 % (0.0-10.0); %Neutrophils 56.2 % (42.0-75.0); Hemoglobin 13.6 g/dL (14.0-18.0); Mean Corpuscular HGB CONC 31.9 g/dL (32.0-36.0); Mean Corpuscular Hemoglobin 32.4 pg (27.0-31.0); Mean Platelet Volume 7.1 fL (7.4-10.4); Platelet Count 207 thou/uL (130-400); Red Blood Cell (RBC) Count 4.19 mill/uL (4.70-6.10); White Blood Cell (WBC) Count 7.3 thou/uL (4.8-10.8)
[2020-06-09] MEDS ORDERED: Morphine 4 MG/ML VIAL ONE (10:46)
[2020-06-09 10:53] LABS: Prothrombin Time 13.1 sec (12.0-14.7)
[2020-06-09 10:54] LABS: PTT 29.1 sec (22.9-36.1)
[2020-06-09 11:00] LABS: Bilirubin Negative (Negative); Blood, Urine Negative (Negative); Clarity Clear (Clear); Glucose, Urine (Dipstick) Normal (Negative); Ketone, Urine Negative (Negative); Leukocyte Negative Leu/uL (Negative); Nitrite Negative (Negative); Protein, Urine (Dipstick) Negative (Neg-Trace); Specific Gravity, Urine 1.013 (1.002-1.036); Urobilinogen Normal mg/dL (Less than 2)
[2020-06-09 11:03] LABS: ALT (SGPT) 10 U/L (8-55); AST (SGOT) 18 U/L (5-34); Albumin 3.8 g/dL (3.4-4.8); Alkaline Phosphatase 82 U/L (40-110); Anion Gap 12 mmol/L (10-20); BUN (Urea Nitrogen) 12 mg/dL (8.4-25.7); Bilirubin, Total 0.4 mg/dL (0.2-1.2); Calc. Creatinine Clearance 0 mL/min (70-130); Calcium 9.2 mg/dL (7.8-10.44); Carbon Dioxide 21 mmol/L (23-31); Chloride 92 mmol/L (98-107); Globulin 3.7 g/dL (2.4-3.5); Glucose 96 mg/dL (83-110); Potassium 4.2 mmol/L (3.5-5.1); Protein, Total 7.5 g/dL (5.8-8.1); Sodium 121 mmol/L (136-145)
[2020-06-09 12:32] LABS: Anion Gap 13 mmol/L (10-20); BUN (Urea Nitrogen) 12 mg/dL (8.4-25.7); Calc. Creatinine Clearance 0 mL/min (70-130); Calcium 9.6 mg/dL (7.8-10.44); Carbon Dioxide 22 mmol/L (23-31); Glucose 94 mg/dL (83-110); Potassium 4.2 mmol/L (3.5-5.1)
[2020-06-09 13:07] LABS: Chloride 94 mmol/L (98-107); Sodium 125 mmol/L (136-145)
[2020-06-09] MEDS ORDERED: Morphine 4 MG/ML VIAL SLOW IVP PRN (13:49)
[2020-06-09] MEDS ORDERED: Acetaminophen 325 MG TAB PO PRN (14:00)
[2020-06-09] MEDS ORDERED: Ondansetron ODT 4 MG TAB SL PRN (14:00)
[2020-06-09] MEDS ORDERED: Ondansetron PF 4 MG/2 ML Vial IVP PRN (14:00)
[2020-06-09] MEDS ORDERED: hydrALAZINE 20 MG/ML VIAL SLOW IVP PRN (14:39)
[2020-06-09] MEDS ORDERED: Mometasone 200 MCG/Formoterol 5 MCG 120 PUFF INHALER INH PRN (14:58)
[2020-06-09] MEDS: Acetaminophen 325 MG TAB PO PRN (15:09)
[2020-06-09] MEDS: Gabapentin 400 MG CAP PO SCH ×2 (15:09→19:51)
[2020-06-09 16:02] LABS: Potassium, Urine 12.4 mmol/L
[2020-06-09 16:31] VITALS: BMI 21.2
[2020-06-09 18:52] LABS: Anion Gap 13 mmol/L (10-20); BUN (Urea Nitrogen) 10 mg/dL (8.4-25.7); Calc. Creatinine Clearance 90 mL/min (70-130); Calcium 9.5 mg/dL (7.8-10.44); Carbon Dioxide 21 mmol/L (23-31); Chloride 97 mmol/L (98-107); Glucose 105 mg/dL (83-110); Potassium 4.5 mmol/L (3.5-5.1); Sodium 126 mmol/L (136-145)
[2020-06-09] MEDS: Ezetimibe 10 MG TAB PO SCH (19:51)
[2020-06-09] MEDS ORDERED: Amlodipine 5 MG TAB PO SCH (21:00)
[2020-06-09 21:06] LABS: SARS-CoV-2 PCR by NAA Not Detected (NotDetected)
[2020-06-09 23:50] LABS: Anion Gap 14 mmol/L (10-20); BUN (Urea Nitrogen) 11 mg/dL (8.4-25.7); Calc. Creatinine Clearance 93 mL/min (70-130); Calcium 9.4 mg/dL (7.8-10.44); Carbon Dioxide 20 mmol/L (23-31); Chloride 96 mmol/L (98-107); Glucose 92 mg/dL (83-110); Potassium 4.4 mmol/L (3.5-5.1); Sodium 126 mmol/L (136-145)
[2020-06-10 06:39] LABS: Anion Gap 15 mmol/L (10-20); BUN (Urea Nitrogen) 12 mg/dL (8.4-25.7); Calc. Creatinine Clearance 87 mL/min (70-130); Calcium 9.4 mg/dL (7.8-10.44); Carbon Dioxide 20 mmol/L (23-31); Chloride 97 mmol/L (98-107); Glucose 74 mg/dL (83-110); Potassium 4.2 mmol/L (3.5-5.1); Sodium 128 mmol/L (136-145)
[2020-06-10 06:41] LABS: Cardiac Risk 1.8 (Less than 4.5)
[2020-06-10] MEDS: Acetaminophen 325 MG TAB PO PRN ×2 (09:15→16:19)
[2020-06-10] MEDS: Aspirin 81 mg Enteric Coated Tablet PO SCH (09:16)
[2020-06-10] MEDS: Gabapentin 400 MG CAP PO SCH ×3 (09:16→19:55)
[2020-06-10] MEDS: Enoxaparin Sodium 40 MG/0.4 ML SYRINGE SC SCH (09:17)
[2020-06-10] MEDS: Nebivolol HCl 2.5 MG TAB PO SCH (09:17)
[2020-06-10] MEDS: oxyCODONE/Acetaminophen 5 mg/325 mg Tablet PO PRN ×2 (11:48→17:41)
[2020-06-10] MEDS ORDERED: oxyCODONE/Acetaminophen 5 mg/325 mg Tablet PO SCH (12:00)
[2020-06-10 12:29] LABS: Anion Gap 16 mmol/L (10-20); BUN (Urea Nitrogen) 13 mg/dL (8.4-25.7); Calc. Creatinine Clearance 85 mL/min (70-130); Calcium 9.9 mg/dL (7.8-10.44); Carbon Dioxide 20 mmol/L (23-31); Chloride 97 mmol/L (98-107); Glucose 84 mg/dL (83-110); Potassium 4.3 mmol/L (3.5-5.1); Sodium 129 mmol/L (136-145)
[2020-06-10 18:06] LABS: Chloride 98 mmol/L (98-107); Potassium 4.4 mmol/L (3.5-5.1); Sodium 129 mmol/L (136-145)
[2020-06-10 18:07] LABS: Calcium 9.7 mg/dL (7.8-10.44); Glucose 136 mg/dL (83-110)
[2020-06-10 18:09] LABS: Anion Gap 15 mmol/L (10-20); Carbon Dioxide 20 mmol/L (23-31)
[2020-06-10 18:11] LABS: BUN (Urea Nitrogen) 17 mg/dL (8.4-25.7); Calc. Creatinine Clearance 72 mL/min (70-130)
[2020-06-10] MEDS ORDERED: Magnesium Citrate 300 ML BOT PO SCH (18:15)
[2020-06-10] MEDS: Ezetimibe 10 MG TAB PO SCH (19:54)
[2020-06-10] MEDS ORDERED: Tolvaptan 15 MG TAB PO SCH (20:00)
[2020-06-10] MEDS ORDERED: TOLVAPTAN 30 MG TAB PO SCH (20:15)
[2020-06-10] MEDS ORDERED: clonazePAM 0.5 MG TAB PO SCH (21:00)
[2020-06-11] MEDS: oxyCODONE/Acetaminophen 5 mg/325 mg Tablet PO PRN ×2 (02:58→08:53)
[2020-06-11] MEDS: Aspirin 81 mg Enteric Coated Tablet PO SCH (08:52)
[2020-06-11] MEDS: Gabapentin 400 MG CAP PO SCH (08:54)
[2020-06-11] MEDS: Enoxaparin Sodium 40 MG/0.4 ML SYRINGE SC SCH (08:55)
[2020-06-11] MEDS ORDERED: Clopidogrel Bisulfate 75 MG TAB PO SCH (09:00)
[2020-06-11] MEDS ORDERED: Escitalopram Oxalate 10 mg Tablet PO SCH (09:00)
[2020-06-11] MEDS ORDERED: Amlodipine 5 MG TAB PO SCH (09:00)
[2020-06-11 09:53] LABS: Anion Gap 14 mmol/L (10-20); BUN (Urea Nitrogen) 20 mg/dL (8.4-25.7); Calc. Creatinine Clearance 74 mL/min (70-130); Calcium 9.6 mg/dL (7.8-10.44); Carbon Dioxide 24 mmol/L (23-31); Chloride 97 mmol/L (98-107); Glucose 161 mg/dL (83-110); Potassium 4.2 mmol/L (3.5-5.1); Sodium 131 mmol/L (136-145)
[2020-06-11] MEDS: Nebivolol HCl 2.5 MG TAB PO SCH (10:03)
[2020-06-11] MEDS: Acetaminophen 325 MG TAB PO PRN (10:03)
[2020-06-11] MEDS ORDERED: HYDROcodone/Acetaminophen 10/325 mg Tablet PO SCH (10:15)
[2020-06-11 12:03] VITALS: BP 112/73; TEMP 97.6
== END 2020-06-11 11:58 | disposition home or self-care (01) | DRG 645 ==
LOC: ERS 09:15 → T4-B 11:46
PROVIDERS: ADMIT Internal Medicine; ATTEND Internal Medicine
DX: E22.2 Syndrome of inappropriate secretion of antidiuretic hormone (principal); J44.9 Chronic obstructive pulmonary disease, unspecified; E78.5 Hyperlipidemia, unspecified; I10 Essential (primary) hypertension; F17.210 Nicotine dependence, cigarettes, uncomplicated; F07.81 Postconcussional syndrome; I25.10 Atherosclerotic heart disease of native coronary artery without angina pectoris; K21.9 Gastro-esophageal reflux disease without esophagitis; I25.2 Old myocardial infarction; Z88.2 Allergy status to sulfonamides; Z79.82 Long term (current) use of aspirin; Z88.1 Allergy status to other antibiotic agents; Z95.1 Presence of aortocoronary bypass graft; Z79.02 Long term (current) use of antithrombotics/antiplatelets
CPT/HCPCS: 36415; 70450; 70551; 71045; 72125; 80048; 80053; 80061; 81003; 82436; 82533; 83930; 83935; 84133; 84300; 84443; 84540; 85025; 85610; 85730; 87635; 93306; 95712; 95819; 95957; 96365; 96366; 96375; J1200; J1650; J2270; J2765; Q0163; U0003; U0005

== ENCOUNTER 2021-05-25 15:49 | Emergency (ER) | payer MEDICARE, BC ==
[2021-05-25] MEDS ORDERED: HYDROcodone/Acetaminophen 10/325 mg Tablet ONE (16:20)
[2021-05-25 16:32] LABS: #Lymphocytes 2.2 thou/uL (1.20-3.40); #Monocytes 0.7 thou/uL (0.11-0.59); #Neutrophils 4.8 thou/uL (1.40-6.50); %Basophils 0.5 % (0.0-1.0); %Eosinophils 0.5 % (0.0-10.0); %Lymphocytes 28.3 % (21.0-51.0); %Monocytes 8.9 % (0.0-10.0); %Neutrophils 61.8 % (42.0-75.0); Hemoglobin 13.6 g/dL (14.0-18.0); Mean Corpuscular HGB CONC 31.2 g/dL (32.0-36.0); Mean Corpuscular Hemoglobin 32.4 pg (27.0-31.0); Mean Platelet Volume 6.8 fL (7.4-10.4); Platelet Count 192 thou/uL (130-400); RBC Distribution Width 13.6 % (11.5-14.5); Red Blood Cell (RBC) Count 4.21 mill/uL (4.70-6.10); White Blood Cell (WBC) Count 7.7 thou/uL (4.8-10.8)
[2021-05-25 16:46] LABS: Bilirubin Negative (Negative); Blood, Urine Negative (Negative); Clarity Clear (Clear); Glucose, Urine (Dipstick) Normal (Negative); Ketone, Urine Negative (Negative); Leukocyte Negative Leu/uL (Negative); Nitrite Negative (Negative); Protein, Urine (Dipstick) Negative (Neg-Trace); Specific Gravity, Urine 1.027 (1.002-1.036); Urobilinogen Normal mg/dL (Less than 2)
[2021-05-25 17:06] LABS: ALT (SGPT) 7 U/L (8-55); AST (SGOT) 16 U/L (5-34); Albumin 3.9 g/dL (3.4-4.8); Alkaline Phosphatase 65 U/L (40-110); Anion Gap 13 mmol/L (10-20); BUN (Urea Nitrogen) 19 mg/dL (8.4-25.7); Bilirubin, Total 0.4 mg/dL (0.2-1.2); Calc. Creatinine Clearance 0 mL/min (70-130); Calcium 8.7 mg/dL (7.8-10.44); Carbon Dioxide 22 mmol/L (23-31); Chloride 100 mmol/L (98-107); Globulin 3.5 g/dL (2.4-3.5); Glucose 93 mg/dL (83-110); Lipase 46 U/L (8-78); Protein, Total 7.4 g/dL (5.8-8.1); Sodium 130 mmol/L (136-145)
== END 2021-05-25 18:11 | disposition home or self-care (01) ==
LOC: ERS 15:49
DX: G20 Parkinson's disease (principal); J44.9 Chronic obstructive pulmonary disease, unspecified; I10 Essential (primary) hypertension; I25.2 Old myocardial infarction; I25.10 Atherosclerotic heart disease of native coronary artery without angina pectoris; F17.210 Nicotine dependence, cigarettes, uncomplicated; Z79.02 Long term (current) use of antithrombotics/antiplatelets; Z79.899 Other long term (current) drug therapy
CPT/HCPCS: 36415; 71045; 80053; 81003; 83605; 83690; 84484; 85025; 93005

== ENCOUNTER 2021-07-27 11:19 | Outpatient (CLI) | payer MEDICARE, BC ==
[2021-07-27 12:27] LABS: #Monocytes 1.1 10x3/uL (0.0-1.1); %Basophils 0.3 % (0.0-2.0); %Eosinophils 0.4 % (0.0-6.0); %Lymphocytes 23.3 % (18.0-47.0); %Monocytes 11.9 % (0.0-10.0); %Neutrophils 63.7 % (40.0-75.0); Hemoglobin 13.6 g/dL (13.5-17.5); Mean Corpuscular HGB CONC 33.4 g/dL (32.0-36.0); Mean Corpuscular Hemoglobin 32.9 pg (27.0-33.0); Mean Corpuscular Volume 98.5 fl (81.2-95.1); Mean Platelet Volume 9.8 fl (7.4-10.4); Platelet Count 187 10x3/uL (150-450); RBC Distribution Width 14.1 % (11.5-14.5); Red Blood Cell (RBC) Count 4.13 10x6/uL (4.32-5.72); White Blood Cell (WBC) Count 9.4 10x3/uL (3.5-10.5)
[2021-07-27 12:31] LABS: ALT (SGPT) 8 U/L (8-55); AST (SGOT) 15 U/L (5-34); Albumin 3.8 g/dL (3.4-4.8); Alkaline Phosphatase 71 U/L (40-110); Anion Gap 15 mmol/L (10-20); BUN (Urea Nitrogen) 13 mg/dL (8.4-25.7); Bilirubin, Total 0.3 mg/dL (0.2-1.2); Calc. Creatinine Clearance 0 mL/min (70-130); Calcium 9.4 mg/dL (7.8-10.44); Carbon Dioxide 24 mmol/L (23-31); Chloride 100 mmol/L (98-107); Globulin 3.5 g/dL (2.4-3.5); Glucose 110 mg/dL (83-110); Potassium 4.9 mmol/L (3.5-5.1); Protein, Total 7.3 g/dL (5.8-8.1); Sodium 134 mmol/L (136-145)
== END 2021-07-27 11:20 | disposition home or self-care (01) ==
LOC: LABBT 11:19
PROVIDERS: ATTEND Surgery
DX: Z01.812 Encounter for preprocedural laboratory examination (principal); K43.2 Incisional hernia without obstruction or gangrene
CPT/HCPCS: 80053; 85025; U0003; U0005

== ENCOUNTER 2021-08-01 08:29 | Day surgery (SDC) | payer MEDICARE, BC ==
[2021-07-31 09:13] VITALS: BMI 22.4
[2021-08-01 10:08] LABS: SARS-CoV-2 NAA Rapid Test Not Detected (NotDetected)
[2021-08-01] MEDS ORDERED: Bupivacaine 0.25% HCL 30 ML VIAL ONE (10:16)
[2021-08-01] MEDS ORDERED: Lidocaine 1% w/Epinephrine 1:100K 20 ML VIAL ONE (10:16)
[2021-08-01] MEDS ORDERED: fentaNYL Citrate/PF 100 MCG/2 ML SYRINGE ONE ×2 (10:28→12:27)
[2021-08-01] MEDS ORDERED: Lidocaine 1% PF 5 ML VIAL ONE (10:30)
[2021-08-01] MEDS ORDERED: PROPOFOL 200 MG/20 ML VIAL ONE (10:30)
[2021-08-01] MEDS ORDERED: Dexamethasone 20 MG/5 ML VIAL ONE (10:30)
[2021-08-01] MEDS ORDERED: Ondansetron PF 4 MG/2 ML Vial ONE ×2 (10:30→11:34)
[2021-08-01] MEDS ORDERED: Ketorolac Tromethamine 30 MG/ML VIAL ONE (11:35)
[2021-08-01] MEDS ORDERED: Fentanyl 100 MCG/2 ML VIAL ONE ×2 (11:40→11:58)
[2021-08-01] MEDS ORDERED: HYDROcodone/Acetaminophen 5/325 mg Tablet ONE (12:11)
== END 2021-08-01 14:20 | disposition home or self-care (01) ==
LOC: SDC 08:29
PROVIDERS: ATTEND Surgery
PROC: 0WUF0JZ Supplement Abdominal Wall with Synthetic Substitute, Open Approach (ICD-10-PCS; principal; 2021-08-01)
DX: K43.2 Incisional hernia without obstruction or gangrene (principal); I25.10 Atherosclerotic heart disease of native coronary artery without angina pectoris; E78.5 Hyperlipidemia, unspecified; I10 Essential (primary) hypertension; K21.9 Gastro-esophageal reflux disease without esophagitis; F17.210 Nicotine dependence, cigarettes, uncomplicated; J44.9 Chronic obstructive pulmonary disease, unspecified; G47.30 Sleep apnea, unspecified; M10.9 Gout, unspecified; E78.00 Pure hypercholesterolemia, unspecified; Z79.02 Long term (current) use of antithrombotics/antiplatelets; Z79.899 Other long term (current) drug therapy; Z88.1 Allergy status to other antibiotic agents; Z88.2 Allergy status to sulfonamides; Z88.8 Allergy status to other drugs, medicaments and biological substances; Z95.1 Presence of aortocoronary bypass graft; Z95.5 Presence of coronary angioplasty implant and graft; Z20.822 Contact with and (suspected) exposure to COVID-19
CPT/HCPCS: 49565; 49568; C1781; U0002; J1100; J1885; J2405; J2704; J3010; S0020

== ENCOUNTER 2022-02-28 14:17 | Outpatient (CLI) | payer MEDICARE, BC ==
[2022-02-28 15:14] LABS: #Monocytes 0.5 10x3/uL (0.0-1.1); #Neutrophils 3.7 10x3/uL (1.5-8.4); %Basophils 0.6 % (0.0-2.0); %Eosinophils 0.2 % (0.0-6.0); %Lymphocytes 21.2 % (18.0-47.0); %Monocytes 9.6 % (0.0-10.0); Hemoglobin 14.1 g/dL (13.5-17.5); Mean Corpuscular HGB CONC 34.3 g/dL (32.0-36.0); Mean Corpuscular Hemoglobin 33.9 pg (27.0-33.0); Mean Corpuscular Volume 98.8 fl (81.2-95.1); Mean Platelet Volume 9.2 fl (7.4-10.4); Platelet Count 198 10x3/uL (150-450); RBC Distribution Width 13.9 % (11.5-14.5); Red Blood Cell (RBC) Count 4.16 10x6/uL (4.32-5.72); White Blood Cell (WBC) Count 5.4 10x3/uL (3.5-10.5)
== END 2022-02-28 14:18 | disposition home or self-care (01) ==
LOC: LABBT 14:17
PROVIDERS: ATTEND Orthopaedic Surgery Hand Surgery
DX: Z01.818 Encounter for other preprocedural examination (principal); S62.603A Fracture of unspecified phalanx of left middle finger, initial encounter for closed fracture; S62.605A Fracture of unspecified phalanx of left ring finger, initial encounter for closed fracture
CPT/HCPCS: 85025; 93005; 93010

== ENCOUNTER 2024-01-30 06:57 | Day surgery (SDC) | payer MEDICARE, BC ==
[2024-01-30] MEDS ORDERED: PROPOFOL 40 ML ONE (08:07)
[2024-01-30] MEDS ORDERED: fentaNYL PF 100 MCG/2 ML SYRINGE ONE (08:07)
[2024-01-30] MEDS ORDERED: Dexamethasone 4 mg/ml Vial ONE (08:07)
[2024-01-30] MEDS ORDERED: Rocuronium Bromide 10 MG/ML (10ML VIAL) ONE (08:07)
[2024-01-30] MEDS ORDERED: Lidocaine 1% PF 5 ML VIAL ONE (08:07)
[2024-01-30] MEDS ORDERED: Ondansetron PF 4 MG/2 ML Vial ONE (08:07)
[2024-01-30] MEDS ORDERED: SUGAMMADEX SODIUM 200 MG/2 ML VIAL ONE (08:08)
[2024-01-30] MEDS ORDERED: fentaNYL 50 mcg/mL 1 mL Vial ONE (08:30)
[2024-01-30] MEDS ORDERED: Indocyanine Green 25 MG/10 ML VIAL ONE (08:42)
[2024-01-30] MEDS ORDERED: Bupivacaine 0.25% HCL 30 ML VIAL ONE (08:43)
[2024-01-30] MEDS ORDERED: EPINEPHrine 1 MG/ML VIAL ONE (08:43)
[2024-01-30 08:46] LABS: #Basophils 0.05 10x3/uL (0.0-0.2); %Basophils 0.8 % (0.0-1.0); %Eosinophils 2.1 % (0.0-10.0); %Lymphocytes 19.6 % (21.0-51.0); %Monocytes 8.8 % (0.0-10.0); %Neutrophils 68.1 % (42.0-75.0); Hematocrit 37.1 % (42.0-52.0); Hemoglobin 12.1 g/dL (14.0-18.0); Mean Corpuscular HGB CONC 32.6 g/dL (32.0-36.0); Mean Corpuscular Volume 104.2 fL (78.0-98.0); Platelet Count 138 10x3/uL (130-400); RBC Distribution Width 15.1 % (11.5-14.5); Red Blood Cell (RBC) Count 3.56 mill/uL (4.70-6.10)
[2024-01-30 09:01] LABS: ALT (SGPT) Less than 5 U/L (8-55); AST (SGOT) 13 U/L (5-34); Alkaline Phosphatase 60 U/L (40-110); Bilirubin, Direct 0.1 mg/dL (0.1-0.3); Bilirubin, Total 0.4 mg/dL (0.2-1.2); Protein, Total 5.8 g/dL (5.8-8.1)
[2024-01-30] MEDS ORDERED: cefOXitin 2 GM VIAL ONE (09:17)
[2024-01-30] MEDS ORDERED: Albuterol HFA (OR) 200 PUFF INH ONE (09:24)
[2024-01-30] MEDS ORDERED: Phenylephrine 40 MG/NS 250 ML 250 ML ONE (09:45)
[2024-01-30 10:06] LABS: Sodium 139 mmol/L (136-145)
[2024-01-30] MEDS ORDERED: Labetalol HCl 100 MG/20 ML VIAL ONE (11:30)
[2024-01-30] MEDS ORDERED: hydrALAZINE 20 MG/ML VIAL ONE (12:00)
[2024-01-30] MEDS ORDERED: HYDROcodone/Acetaminophen 5/325 mg Tablet ONE (13:11)
== END 2024-01-30 13:43 | disposition home or self-care (01) ==
LOC: SDC 06:57
PROVIDERS: ATTEND Surgery
PROC: 0FT44ZZ Resection of Gallbladder, Percutaneous Endoscopic Approach (ICD-10-PCS; principal; 2024-01-30)
DX: K80.12 Calculus of gallbladder with acute and chronic cholecystitis without obstruction (principal); K21.9 Gastro-esophageal reflux disease without esophagitis; I73.9 Peripheral vascular disease, unspecified; I25.10 Atherosclerotic heart disease of native coronary artery without angina pectoris; I11.0 Hypertensive heart disease with heart failure; I50.9 Heart failure, unspecified; E78.00 Pure hypercholesterolemia, unspecified; H91.90 Unspecified hearing loss, unspecified ear; J44.9 Chronic obstructive pulmonary disease, unspecified; F41.9 Anxiety disorder, unspecified; F17.200 Nicotine dependence, unspecified, uncomplicated; G47.33 Obstructive sleep apnea (adult) (pediatric); M19.90 Unspecified osteoarthritis, unspecified site; Z95.1 Presence of aortocoronary bypass graft; Z85.028 Personal history of other malignant neoplasm of stomach; Z88.8 Allergy status to other drugs, medicaments and biological substances; Z88.1 Allergy status to other antibiotic agents; Z88.2 Allergy status to sulfonamides; Z79.51 Long term (current) use of inhaled steroids; Z79.02 Long term (current) use of antithrombotics/antiplatelets; Z79.899 Other long term (current) drug therapy
CPT/HCPCS: 47562; 80076; 84295; 85025; C1889; J0171; J0360; J0665; J0694; J1100; J2405; J2704; J3010; S2900; 88304

== ENCOUNTER 2025-02-02 19:45 | Inpatient (IN) | payer MEDICARE, BC ==
[~2025-02-02 19:45] MED LIST: Iopamidol-370 76% 500 ML MDV (1 ML CHARGE) ONE
[2025-02-02 20:27] LABS: #Basophils Less than 0.03 10x3/uL (0.0-0.2); #Eosinophils Less than 0.03 10x3/uL (0.0-0.7); #Monocytes 0.29 10x3/uL (0.11-0.59); #Neutrophils 3.24 10x3/uL (1.40-6.50); %Basophils 0.2 % (0.0-1.0); %Eosinophils 0.0 % (0.0-10.0); %Lymphocytes 14.4 % (21.0-51.0); %Monocytes 7.0 % (0.0-10.0); %Neutrophils 77.9 % (42.0-75.0); Hematocrit 32.7 % (42.0-52.0); Hemoglobin 10.1 g/dL (14.0-18.0); Mean Corpuscular Hemoglobin 34.2 pg (27.0-31.0); Mean Corpuscular Volume 110.8 fL (78.0-98.0); Platelet Count 82 10x3/uL (130-400); Red Blood Cell (RBC) Count 2.95 mill/uL (4.70-6.10); White Blood Cell (WBC) Count 4.16 10x3/uL (4.8-10.8)
[2025-02-02 20:37] LABS: ALT (SGPT) 8 U/L (Less than 45); AST (SGOT) 30 U/L (11-34); Albumin 3.1 g/dL (3.1-4.5); Alkaline Phosphatase 119 U/L (40-110); Anion Gap 8 mmol/L (10-20); BUN (Urea Nitrogen) 18 mg/dL (8.4-25.7); Bilirubin, Total 0.7 mg/dL (0.3-1.2); Calc. Creatinine Clearance 0 mL/min (70-130); Calcium 8.3 mg/dL (7.8-10.44); Carbon Dioxide 19 mmol/L (23-31); Chloride 110 mmol/L (98-107); Globulin 3.6 g/dL (2.4-3.5); Glucose 139 mg/dL (83-110); Potassium 4.5 mmol/L (3.5-5.1); Sodium 132 mmol/L (136-145)
[2025-02-02] MEDS ORDERED: Cefepime 2 GM VIAL ONE (20:38)
[2025-02-02] MEDS ORDERED: Magnesium 2 GM/50 ML BAG (IN WATER) ONE (20:38)
[2025-02-02] MEDS ORDERED: VANCOMYCIN 2 GRAM/400 ML BAG 400 ML ONE (22:00)
[2025-02-02] MEDS ORDERED: Furosemide 40 MG (4 mL) VIAL ONE (22:44)
[2025-02-02] MEDS ORDERED: Ondansetron PF 4 MG/2 ML Vial IVP PRN (23:00)
[2025-02-03] MEDS ORDERED: Azithromycin 500 MG in Syringe 0 ML IVPB SCH (00:15)
[2025-02-03] MEDS ORDERED: Azithromycin 500 MG VIAL ONE (02:56)
[2025-02-03] MEDS ORDERED: Furosemide 20 MG (2 mL) VIAL ONE (02:56)
[2025-02-03] MEDS ORDERED: cefTRIAXone (ROCEPHIN) 1 GM VIAL ONE (02:57)
[2025-02-03] MEDS: cefTRIAXone\\ROCEPHIN 1 GM in Sodium Chloride 0.9% 100 ML IVPB SCH (03:12)
[2025-02-03] MEDS: Furosemide 20 MG (2 mL) VIAL SLOW IVP SCH (03:13)
[2025-02-03] MEDS: Azithromycin 500 MG in Sodium Chloride 0.9% 250 ML 250 ML IVPB SCH (03:48)
[2025-02-03 04:04] LABS: #Basophils Less than 0.03 10x3/uL (0.0-0.2); #Eosinophils Less than 0.03 10x3/uL (0.0-0.7); #Monocytes 0.13 10x3/uL (0.11-0.59); #Neutrophils 3.20 10x3/uL (1.40-6.50); %Basophils 0.3 % (0.0-1.0); %Eosinophils 0.0 % (0.0-10.0); %Lymphocytes 7.7 % (21.0-51.0); %Monocytes 3.6 % (0.0-10.0); %Neutrophils 87.9 % (42.0-75.0); Hematocrit 32.6 % (42.0-52.0); Hemoglobin 10.9 g/dL (14.0-18.0); Mean Corpuscular Hemoglobin 34.7 pg (27.0-31.0); Mean Corpuscular Volume 103.8 fL (78.0-98.0); Platelet Count 81 10x3/uL (130-400); Red Blood Cell (RBC) Count 3.14 mill/uL (4.70-6.10); White Blood Cell (WBC) Count 3.64 10x3/uL (4.8-10.8)
[2025-02-03 04:12] LABS: Anion Gap 17 mmol/L (10-20); BUN (Urea Nitrogen) 20 mg/dL (8.4-25.7); Calc. Creatinine Clearance 0 mL/min (70-130); Calcium 9.0 mg/dL (7.8-10.44); Carbon Dioxide 21 mmol/L (23-31); Chloride 105 mmol/L (98-107); Glucose 143 mg/dL (83-110); Magnesium 2.4 mg/dL (1.6-2.6); Potassium 4.8 mmol/L (3.5-5.1); Sodium 138 mmol/L (136-145)
[2025-02-03] MEDS: Furosemide 40 MG (4 mL) VIAL SLOW IVP SCH (06:40)
[2025-02-03] MEDS ORDERED: HYDROcodone/Acetaminophen 5/325 mg Tablet ONE (08:35)
[2025-02-03] MEDS: oxyCODONE/Acetaminophen 5 mg/325 mg Tablet PO PRN (08:39)
[2025-02-03] MEDS ORDERED: Apixaban 5 MG TAB PO SCH (09:00)
[2025-02-03] MEDS ORDERED: Metoprolol Succinate XL 25 MG ER.TAB PO SCH (09:00)
[2025-02-03] MEDS ORDERED: Pantoprazole 40 MG DR.TAB ONE (09:29)
[2025-02-03] MEDS ORDERED: Amiodarone 200 MG TAB ONE (09:30)
[2025-02-03] MEDS: Amiodarone 200 MG TAB PO SCH (09:37)
[2025-02-03] MEDS: Allopurinol 300 MG TAB PO SCH (09:37)
[2025-02-03] MEDS: Pantoprazole 40 MG DR.TAB PO SCH (09:39)
[2025-02-03] MEDS: Mometasone 200 MCG/Formoterol 5 MCG 120 PUFF INHALER INH SCH (09:46)
[2025-02-03] MEDS: Metoprolol Succinate XL 25 MG ER.TAB PO SCH (11:35)
[2025-02-03 17:47] LABS: Fluid, pH - Pleural Fld Greater than 7.500 (7.60 - 7.66)
[2025-02-03 18:47] LABS: Fluid, Triglycerides Less than 11 mg/dL (Not Available); Pleural Fluid, Amylase Less than 30 U/L (Not Available); Pleural Fluid, Glucose 130 mg/dL; Pleural Fluid, LDH 55 U/L (Not Available); Pleural Fluid, Protein 1.6 g/dL
[2025-02-03 18:54] LABS: RBC Count-Automated (BF) 0 /cu.mm; WBC/Nucleated-Auto (BF) 72 /cu.mm
[2025-02-03 19:51] LABS: Fluid, pH - Pleural Fld Greater than 7.500 (7.60 - 7.66)
[2025-02-03 20:10] LABS: BF Segmented Neutrophils 24 %; Cell Count Non Hematic 29 %
[2025-02-03] MEDS: Enoxaparin 80 MG (0.8 mL) SYRINGE SC SCH (21:13)
[2025-02-03] MEDS: HYDROcodone/Acetaminophen 10/325 mg Tablet PO SCH (22:13)
[2025-02-04 06:03] LABS: Hematocrit 34.7 % (42.0-52.0); Hemoglobin 11.3 g/dL (14.0-18.0); Mean Corpuscular Hemoglobin 34.7 pg (27.0-31.0); Mean Corpuscular Volume 106.4 fL (78.0-98.0); Platelet Count 91 10x3/uL (130-400); Red Blood Cell (RBC) Count 3.26 mill/uL (4.70-6.10); White Blood Cell (WBC) Count 5.01 10x3/uL (4.8-10.8)
[2025-02-04 06:10] LABS: Anion Gap 10 mmol/L (10-20); BUN (Urea Nitrogen) 27 mg/dL (8.4-25.7); Calc. Creatinine Clearance 51 mL/min (70-130); Calcium 8.8 mg/dL (7.8-10.44); Carbon Dioxide 26 mmol/L (23-31); Chloride 100 mmol/L (98-107); Glucose 82 mg/dL (83-110); Magnesium 2.0 mg/dL (1.6-2.6); Potassium 3.9 mmol/L (3.5-5.1); Sodium 132 mmol/L (136-145)
[2025-02-04 06:48] VITALS: BMI 22.8
[2025-02-04 07:01] LABS: Anisocytosis MODERATE=16-30 cells HPF (0-5); Burr Cells MODERATE= 6-15 cells HPF (0-1); Macrocytosis SLIGHT = 6-15 cells HPF (0-5); Nucleated RBC (Manual Ct) 3 % (0); Platelet Adequacy Comment Platelets Decreased; Polychromasia SLIGHT = 2-3 cells HPF (0-2); Smudge Cells 23.2 %
[2025-02-04] MEDS: Spironolactone 25 MG TAB PO SCH (08:56)
[2025-02-04] MEDS ORDERED: Apixaban 5 MG TAB PO SCH (09:00)
[2025-02-04 10:47] VITALS: BMI 22.4
[2025-02-04 12:22] LABS: Bacteria/HPF None Seen HPF (None Seen); CAUTI Indications for Culture Alt mental st,lethar; Glucose, Urine (Dipstick) 150 mg/dL (Negative); Leukocyte 25 Leu/uL (Negative); Protein, Urine (Dipstick) Negative (Neg-Trace); RBC/HPF 0-3 HPF (0-3); Specific Gravity, Urine 1.009 (1.002-1.036); WBC/HPF 0-3 HPF (0-3)
[2025-02-04 12:24] LABS: Urine Culture Reflex No No
[2025-02-04] MEDS: cefTRIAXone\\ROCEPHIN 1 GM in Sodium Chloride 0.9% 100 ML IVPB SCH (14:31)
[2025-02-04] MEDS: Apixaban 5 MG TAB PO SCH (21:23)
[2025-02-05 04:57] LABS: Hematocrit 31.6 % (42.0-52.0); Hemoglobin 10.8 g/dL (14.0-18.0); Mean Corpuscular Hemoglobin 34.7 pg (27.0-31.0); Mean Corpuscular Volume 101.6 fL (78.0-98.0); Platelet Count 91 10x3/uL (130-400); Red Blood Cell (RBC) Count 3.11 mill/uL (4.70-6.10); White Blood Cell (WBC) Count 4.16 10x3/uL (4.8-10.8)
[2025-02-05 05:36] LABS: Anion Gap 14 mmol/L (10-20); BUN (Urea Nitrogen) 27 mg/dL (8.4-25.7); Calc. Creatinine Clearance 47 mL/min (70-130); Calcium 8.6 mg/dL (7.8-10.44); Carbon Dioxide 28 mmol/L (23-31); Chloride 97 mmol/L (98-107); Glucose 91 mg/dL (83-110); Potassium 3.4 mmol/L (3.5-5.1); Sodium 136 mmol/L (136-145)
[2025-02-05 05:42] LABS: Macrocytosis SLIGHT = 6-15 cells HPF (0-5); Nucleated RBC (Manual Ct) 1 % (0); Platelet Adequacy Comment Platelets Decreased; Polychromasia SLIGHT = 2-3 cells HPF (0-2); Schistocytes SLIGHT = 2-5 cells HPF (0-1); Smudge Cells 8.1 %
[2025-02-05] MEDS: Spironolactone 25 MG TAB PO SCH (11:19)
[2025-02-05] MEDS: Senokot S 8.6-50 MG TAB PO PRN (14:29)
[2025-02-06 05:59] LABS: Anion Gap 9 mmol/L (10-20); BUN (Urea Nitrogen) 26 mg/dL (8.4-25.7); Calc. Creatinine Clearance 55 mL/min (70-130); Calcium 8.9 mg/dL (7.8-10.44); Carbon Dioxide 23 mmol/L (23-31); Chloride 103 mmol/L (98-107); Glucose 89 mg/dL (83-110); Magnesium 2.3 mg/dL (1.6-2.6); Potassium 3.8 mmol/L (3.5-5.1); Sodium 131 mmol/L (136-145)
[2025-02-06 06:01] LABS: #Basophils Less than 0.03 10x3/uL (0.0-0.2); #Eosinophils Less than 0.03 10x3/uL (0.0-0.7); #Monocytes 0.21 10x3/uL (0.11-0.59); #Neutrophils 2.94 10x3/uL (1.40-6.50); %Basophils 0.5 % (0.0-1.0); %Eosinophils 0.5 % (0.0-10.0); %Lymphocytes 20.9 % (21.0-51.0); %Monocytes 5.2 % (0.0-10.0); %Neutrophils 72.4 % (42.0-75.0); Hematocrit 37.4 % (42.0-52.0); Hemoglobin 12.2 g/dL (14.0-18.0); Mean Corpuscular Hemoglobin 34.8 pg (27.0-31.0); Mean Corpuscular Volume 106.6 fL (78.0-98.0); Platelet Count 90 10x3/uL (130-400); Red Blood Cell (RBC) Count 3.51 mill/uL (4.70-6.10); White Blood Cell (WBC) Count 4.06 10x3/uL (4.8-10.8)
[2025-02-06] MEDS: Furosemide 40 MG TAB PO SCH (13:23)
[2025-02-06 14:45] LABS: Albumin 2.9 g/dL (3.1-4.5)
[2025-02-06 14:55] LABS: ALT (SGPT) Less than 7 U/L (Less than 45); AST (SGOT) 19 U/L (11-34); Alkaline Phosphatase 93 U/L (40-110); Bilirubin, Direct 0.4 mg/dL (0.1-0.3); Bilirubin, Total 0.7 mg/dL (0.3-1.2); Lipase 10 U/L (8-78)
[2025-02-06] MEDS: Senokot S 8.6-50 MG TAB PO SCH (21:32)
[2025-02-07 05:31] LABS: #Basophils 0.03 10x3/uL (0.0-0.2); #Eosinophils 0.03 10x3/uL (0.0-0.7); #Monocytes 0.23 10x3/uL (0.11-0.59); #Neutrophils 3.15 10x3/uL (1.40-6.50); %Basophils 0.7 % (0.0-1.0); %Eosinophils 0.7 % (0.0-10.0); %Lymphocytes 22.9 % (21.0-51.0); %Monocytes 5.1 % (0.0-10.0); %Neutrophils 70.2 % (42.0-75.0); Hematocrit 38.6 % (42.0-52.0); Hemoglobin 12.1 g/dL (14.0-18.0); Mean Corpuscular Hemoglobin 33.8 pg (27.0-31.0); Mean Corpuscular Volume 107.8 fL (78.0-98.0); Platelet Count 95 10x3/uL (130-400); Red Blood Cell (RBC) Count 3.58 mill/uL (4.70-6.10); White Blood Cell (WBC) Count 4.49 10x3/uL (4.8-10.8)
[2025-02-07 06:03] LABS: ALT (SGPT) Less than 7 U/L (Less than 45); AST (SGOT) 31 U/L (11-34); Albumin 3.2 g/dL (3.1-4.5); Alkaline Phosphatase 106 U/L (40-110); Anion Gap 15 mmol/L (10-20); BUN (Urea Nitrogen) 41 mg/dL (8.4-25.7); Bilirubin, Total 0.8 mg/dL (0.3-1.2); Calc. Creatinine Clearance 45 mL/min (70-130); Calcium 9.0 mg/dL (7.8-10.44); Carbon Dioxide 29 mmol/L (23-31); Chloride 100 mmol/L (98-107); Globulin 4.0 g/dL (2.4-3.5); Glucose 92 mg/dL (83-110); Magnesium 2.4 mg/dL (1.6-2.6); Potassium 3.5 mmol/L (3.5-5.1); Sodium 140 mmol/L (136-145)
[2025-02-07 06:54] LABS: Burr Cells SLIGHT = 2-5 cells HPF (0-1); Macrocytosis SLIGHT = 6-15 cells HPF (0-5); Platelet Adequacy Comment Platelets Decreased; Polychromasia SLIGHT = 2-3 cells HPF (0-2); Schistocytes SLIGHT = 2-5 cells HPF (0-1)
[2025-02-07] MEDS: Amiodarone 200 MG TAB PO SCH (08:16)
[2025-02-07] MEDS: Cyanocobalamin (Vitamin B-12) 1,000 MCG TAB PO SCH (08:17)
[2025-02-07] MEDS: Thiamine 100 MG TAB PO SCH (08:17)
[2025-02-07] MEDS: Folic Acid 1 MG TAB PO SCH (08:23)
[2025-02-07] MEDS: Lisinopril 2.5 MG TAB PO SCH (11:13)
[2025-02-07] MEDS: Spironolactone 25 MG TAB PO SCH (11:23)
[2025-02-07] MEDS: Cefdinir 300 MG CAP PO SCH (21:17)
[2025-02-08 05:04] LABS: ALT (SGPT) 12 U/L (Less than 45); AST (SGOT) 30 U/L (11-34); Albumin 3.0 g/dL (3.1-4.5); Alkaline Phosphatase 92 U/L (40-110); Anion Gap 12 mmol/L (10-20); BUN (Urea Nitrogen) 34 mg/dL (8.4-25.7); Bilirubin, Total 0.9 mg/dL (0.3-1.2); Calc. Creatinine Clearance 46 mL/min (70-130); Calcium 8.7 mg/dL (7.8-10.44); Carbon Dioxide 27 mmol/L (23-31); Chloride 101 mmol/L (98-107); Globulin 3.6 g/dL (2.4-3.5); Glucose 95 mg/dL (83-110); Magnesium 2.3 mg/dL (1.6-2.6); Potassium 3.9 mmol/L (3.5-5.1); Sodium 136 mmol/L (136-145)
[2025-02-08 05:26] LABS: #Basophils 0.03 10x3/uL (0.0-0.2); #Eosinophils 0.05 10x3/uL (0.0-0.7); #Monocytes 0.23 10x3/uL (0.11-0.59); #Neutrophils 2.19 10x3/uL (1.40-6.50); %Basophils 0.9 % (0.0-1.0); %Eosinophils 1.5 % (0.0-10.0); %Lymphocytes 24.6 % (21.0-51.0); %Monocytes 6.9 % (0.0-10.0); %Neutrophils 65.5 % (42.0-75.0); Hematocrit 34.2 % (42.0-52.0); Hemoglobin 11.0 g/dL (14.0-18.0); Mean Corpuscular Hemoglobin 34.5 pg (27.0-31.0); Mean Corpuscular Volume 107.2 fL (78.0-98.0); Platelet Count 87 10x3/uL (130-400); Red Blood Cell (RBC) Count 3.19 mill/uL (4.70-6.10); White Blood Cell (WBC) Count 3.34 10x3/uL (4.8-10.8)
[2025-02-08] MEDS: Spironolactone 25 MG TAB PO SCH (08:47)
[2025-02-08] MEDS: Lisinopril 2.5 MG TAB PO SCH (08:49)
[2025-02-08 19:31] VITALS: BP 120/58; TEMP 98.4
== END 2025-02-08 21:30 | DRG 189 ==
LOC: ERS 19:45 → ERHOLD 22:46 → EEVIPCON 22:46 → 2NO 02-03 15:07
PROVIDERS: ADMIT Internal Medicine; ATTEND Internal Medicine
DX: J96.01 Acute respiratory failure with hypoxia (principal); I50.23 Acute on chronic systolic (congestive) heart failure; J18.9 Pneumonia, unspecified organism; E87.1 Hypo-osmolality and hyponatremia; I48.0 Paroxysmal atrial fibrillation; Z79.01 Long term (current) use of anticoagulants; I25.10 Atherosclerotic heart disease of native coronary artery without angina pectoris; Z95.1 Presence of aortocoronary bypass graft; G20.A1 Parkinson's disease without dyskinesia, without mention of fluctuations; I25.2 Old myocardial infarction; Z88.1 Allergy status to other antibiotic agents; Z88.2 Allergy status to sulfonamides; Z88.8 Allergy status to other drugs, medicaments and biological substances; Z79.899 Other long term (current) drug therapy; Z95.818 Presence of other cardiac implants and grafts; J44.9 Chronic obstructive pulmonary disease, unspecified; G62.9 Polyneuropathy, unspecified; I11.0 Hypertensive heart disease with heart failure; M54.9 Dorsalgia, unspecified; Z90.49 Acquired absence of other specified parts of digestive tract; Z98.890 Other specified postprocedural states; F41.9 Anxiety disorder, unspecified; F32.A Depression, unspecified; F17.210 Nicotine dependence, cigarettes, uncomplicated; D64.9 Anemia, unspecified; N40.0 Benign prostatic hyperplasia without lower urinary tract symptoms
CPT/HCPCS: 36415; 70450; 71045; 71275; 80048; 80053; 80076; 81001; 82150; 82945; 83605; 83615; 83690; 83735; 83880; 83986; 84145; 84157; 84478; 84484; 85025; 85060; 85379; 87040; 87077; 87116; 87149; 87206; 88112; 88305; 88341; 88342; 89051; 93005; 94640; 96365; 96366; 96375; J0456; J0692; J0696; J1650; J1940; J3375; J3475; J7050; Q9967